=== PATIENT | female | born 1995 | race Caucasian/White ===

== ENCOUNTER 2017-01-20 15:39 | Emergency (ER) | payer BC, MEDICAID, OTHER ==
[2017-01-20 15:50] VITALS: BP 119/71
[2017-01-20] MEDS ORDERED: LORAZEPAM 1 MG TABLET PO ONE (16:01)
--- NOTE | 2017-01-20 16:06 | ER Document Report ---
ED Medical Screen (RME) - General Chief Complaint: Epigastric Pain Stated Complaint: DIFFICULTY BREATHING Time Seen by Provider: 01/20/17 15:54 Mode of Arrival: Ambulatory Information source: Patient TRAVEL OUTSIDE OF THE [place] IN LAST 30 DAYS: No - HPI Onset: Just prior to arrival Onset/Duration: Sudden Context: ONSET WHILE @ WORK, 15-20 MIN. AFTER DRINKING A "5-HOUR ENERGY DRINK" Quality of pain: No pain, Other - "TIGHTNESS" Associated Symptoms: Dizzy/lightheaded, Shortness of breath, Sweating, Weakness. denies: Abdominal pain, Chills, Fever, Leg swelling, Nausea Exacerbated by: Denies Relieved by: Denies Similar symptoms previously: No Recently seen / treated by doctor: No - Related Data Smoking: Non-smoker Frequency of alcohol use: Rare Drug Abuse: Marijuana Allergies/Adverse Reactions: Penicillins Allergy (Verified 01/20/17 15:49) Sulfa (Sulfonamide Antibiotics) Allergy (Verified 01/20/17 15:49) Past Medical History - Social History Cigarette use (# per day): No Chew tobacco use (# tins/day): No Frequency of alcohol use: Social Drug Abuse: Marijuana Pulmonary Medical History: Reports: Hx Asthma - as a child Renal/ Medical History: Denies: Hx Peritoneal Dialysis Surgical Hx: Negative Review of Systems - Review of Systems Constitutional: Weakness EENT: No symptoms reported Cardiovascular: See HPI Respiratory: See HPI Gastrointestinal: No symptoms reported Genitourinary: No symptoms reported Female Genitourinary: No symptoms reported. denies: Musculoskeletal: No symptoms reported Skin: Other - DIAPHORESIS Neurological/Psychological: See HPI Physical Exam - Vital signs Vitals: Temp Pulse Resp BP Pulse Ox 97.4 F 61 24 H 119/71 98 01/20/17 15:49 01/20/17 15:49 01/20/17 15:49 01/20/17 15:49 01/20/17 15:49 Interpretation: Tachypneic. No: Hypertensive, Tachycardic - General General appearance: Alert, Anxious In distress: None - Respiratory Respiratory status: No respiratory distress Breath sounds: Normal - Cardiovascular Rhythm: Regular Heart sounds: Normal auscultation Murmur: No Course - Vital Signs Vital signs: Temp Pulse Resp BP Pulse Ox 97.4 F 61 24 H 119/71 98 01/20/17 15:49 07/16/17 15:49 01/20/17 15:49 01/20/17 15:49 01/20/17 15:49
[2017-01-20 16:21] LABS: ABSOLUTE BASOPHILS # (AUTO) 0.1 10^3/uL (0.0-0.2); ABSOLUTE EOSINOPHILS # (AUTO) 0.2 10^3/uL (0.0-0.6); ABSOLUTE LYMPHOCYTES (AUTO) 3.1 10^3/uL (0.5-4.7); ABSOLUTE MONOCYTES (AUTO) 0.5 10^3/uL (0.1-1.4); ABSOLUTE NEUT (AUTO) 4.9 10^3/uL (1.7-8.2); BASOPHILS % (AUTO) 1.3 % (0-2); HEMATOCRIT 44.5 % (36.0-47.0); HGB HCT DIFFERENCE 0.5; LYMPHOCYTES % (AUTO) 35.6 % (13-45); MEAN CORPUSCULAR HEMOGLOBIN 31.4 pg (27.0-33.4); MEAN CORPUSCULAR HGB CONC 33.7 g/dL (32.0-36.0); MEAN CORPUSCULAR VOLUME 93 fl (80-97); MONOCYTES % (AUTO) 5.9 % (3-13); RED BLOOD COUNT 4.77 10^6/uL (3.72-5.28); RED CELL DISTRIBUTION WIDTH 12.2 % (11.5-14.0); SEGMENTED NEUTROPHILS % (AUTO) 55.2 % (42-78); WHITE BLOOD COUNT 8.8 10^3/uL (4.0-10.5)
[2017-01-20 16:38] LABS: ALANINE AMINOTRANSFERASE 45 U/L (9-52); ALBUMIN 4.8 g/dL (3.5-5.0); ALKALINE PHOSPHATASE 89 U/L (38-126); ANION GAP 16 (5-19); ASPARTATE AMINO TRANSFERASE 64 U/L (14-36); BILIRUBIN,DIRECT 0.5 mg/dL (0.0-0.4); BLOOD UREA NITROGEN 12 mg/dL (7-20); CALCIUM 9.8 mg/dL (8.4-10.2); CARBON DIOXIDE 21 mmol/L (22-30); CHLORIDE 103 mmol/L (98-107); CREATININE RESULT 0.75 mg/dL (0.52-1.25); GLUCOSE 106 mg/dL (75-110); POTASSIUM 3.7 mmol/L (3.6-5.0); SODIUM 139.8 mmol/L (137-145); TOTAL PROTEIN 8.1 g/dL (6.3-8.2)
--- NOTE | 2017-01-20 16:53 | ER Document Report ---
ED General - General Mode of Arrival: Ambulatory Information source: Patient TRAVEL OUTSIDE OF THE [place] IN LAST 30 DAYS: No - HPI Onset: Just prior to arrival <MO TRIANA - Last Filed: 01/20/17 20:01> <MELODY BHAKTA - Last Filed: 01/20/17 22:54> - General Chief Complaint: Epigastric Pain Stated Complaint: DIFFICULTY BREATHING Time Seen by Provider: 01/20/17 15:54 Notes: Patient is a 21-year-old female that presents to the emergency department today with complaints of sudden "squeezing" chest pain with associated shortness of breath that began just prior to arrival. Patient states she had been at work for approximately 20 minutes when her symptoms began. Patient states that prior to getting to work, she drank a 5 hour energy shot which is the only thing that she can think of that could have triggered this. Patient goes on to state that this is not an uncommon thing for her to do though, stating she drinks these probably every other day and drinks lots of coffee regularly. Patient states that she got very sweaty and that it "hurt to breathe out" during this episode. Patient states she feels back to normal now and does not have any symptoms currently. Patient denies any usage of supplements. (MO TRIANA) - Related Data Allergies/Adverse Reactions: Penicillins Allergy (Verified 01/20/17 15:49) Sulfa (Sulfonamide Antibiotics) Allergy (Verified 01/20/17 15:49) Past Medical History - General Information source: Patient, [facility] Records - Social History Smoking Status: Never Smoker Cigarette use (# per day): No Chew tobacco use (# tins/day): No Frequency of alcohol use: Social Drug Abuse: Marijuana Lives with: Family Family History: Reviewed & Not Pertinent Pulmonary Medical History: Reports: Hx Asthma - as a child Surgical Hx: Negative <MO TRIANA - Last Filed: 01/20/17 20:01> Review of Systems - Review of Systems Constitutional: See HPI, Diaphoresis EENT: No symptoms reported Cardiovascular: See HPI, Chest pain Respiratory: See HPI, Hurts to breathe, Short of breath Gastrointestinal: No symptoms reported Genitourinary: No symptoms reported Female Genitourinary: No symptoms reported Musculoskeletal: No symptoms reported Skin: No symptoms reported Hematologic/Lymphatic: No symptoms reported Neurological/Psychological: No symptoms reported -: Yes All other systems reviewed and negative <MO TRIANA - Last Filed: 01/20/17 20:01> Physical Exam <MO TRIANA - Last Filed: 01/20/17 20:01> <MELODY BHAKTA - Last Filed: 01/20/17 22:54> - Vital signs Vitals: Temp Pulse Resp BP Pulse Ox 97.4 F 61 24 H 119/71 98 01/20/17 15:49 01/20/17 15:49 01/20/17 15:49 01/20/17 15:49 01/20/17 15:49 - Notes Notes: PHYSICAL EXAM GENERAL: Alert, interacts well. No acute distress. HEAD: Normocephalic, atraumatic. EYES: Pupils equal, round, and reactive to light. Extraocular movements intact. ENT: Oral mucosa moist, tongue midline. NECK: Full range of motion. Supple. Trachea midline. LUNGS: Clear to auscultation bilaterally, no wheezes, rales, or rhonchi. No respiratory distress. HEART: Regular rate and rhythm. No murmurs, gallops, or rubs. ABDOMEN: Soft, non-tender. Non-distended. Bowel sounds present in all 4 quadrants. EXTREMITIES: Moves all 4 extremities spontaneously. No edema, radial and dorsalis pedis pulses 2/4 bilaterally. No cyanosis. NEUROLOGICAL: Alert and oriented x3. Normal speech. Biceps and patellar DTRs 2+ bilaterally. PSYCH: Normal affect, normal mood. SKIN: Warm, skin is slightly damp, normal turgor. No rashes or lesions noted. (MO TRIANA) Course - Laboratory Result Diagrams: 01/20/17 16:05 01/20/17 16:05 <MO TRIANA - Last Filed: 01/20/17 20:01> - Laboratory Result Diagrams: 01/20/17 16:05 01/20/17 16:05 <MLEODY BHAKTA - Last Filed: 01/20/17 22:54> - Re-evaluation Re-evalutation: 01/20/17 22:45 CBC unremarkable, CMP shows slightly low CO2 at 21 otherwise unremarkable, hCG negative, EKG is nonischemic, it was repeated once and still had no changes. Patient feels much better. At present I do not have a definite answer for why the patient had her earlier symptoms however I suspect that came from the 5 hour energy drink. Encouraged patient to wait for her lab work to return however patient eloped before I can give her her final discharge instructions. I see no life-threatening etiology at this time. Patient eloped but was going to be discharged home. (MELODY BHAKTA) - Vital Signs Vital signs: Temp Pulse Resp BP Pulse Ox 97.4 F 61 24 H 119/71 98 01/20/17 15:49 01/20/17 15:49 01/20/17 15:49 01/20/17 15:49 01/20/17 15:49 - Laboratory Laboratory results interpreted by me: 01/20/17 16:05 Carbon Dioxide 21 L Direct Bilirubin 0.5 H AST 64 H - EKG Interpretation by Me Additional EKG results interpreted by me: 01/20/17 22:53 Initial EKG shows sinus bradycardia at a rate of 58, normal axis, normal intervals, no ST segment elevations or depressions, no T-wave inversions per my interpretation. Repeat EKG shows sinus bradycardia at a rate of 51, normal axis, normal intervals, no ST segment elevations or depressions, no T-wave inversions per my interpretation. (MELODY BHAKTA) Discharge <MO TRIANA - Last Filed: 01/20/17 20:01> <MELODY BHAKTA - Last Filed: 01/20/17 22:54> - Discharge Clinical Impression: Epigastric abdominal pain of unknown etiology Condition: Stable Disposition: ELOPED Scribe Attestation: 01/20/17 22:53 I personally performed the services described in the documentation, reviewed and edited the documentation which was dictated to the scribe in my presence, and it accurately records my words and actions. (MELODY BHAKTA) Scribe Documentation - Scribe Written by Gary:: Gary Tinajero, 01/20/20172006 acting as scribe for :: Alfredo <MO TRIANA - Last Filed: 01/20/17 20:01>
--- NOTE | 2017-01-20 21:51 | EKG REPORT ---
SEVERITY:- NORMAL ECG - SINUS RHYTHM : Confirmed by: Michele Centeno MD 20-Jan-2017 21:51:45
--- NOTE | 2017-01-20 21:53 | EKG REPORT ---
SEVERITY:- BORDERLINE ECG - SINUS RHYTHM : Confirmed by: Michele Centeno MD 20-Jan-2017 21:53:02
== END 2017-01-20 18:08 | disposition left against medical advice (07) ==
LOC: ER 15:39
DX: R10.13 Epigastric pain (principal); R06.02 Shortness of breath
CPT/HCPCS: 36415; 80053; 84703; 85025; 93005; 93010; 99281

== ENCOUNTER 2017-08-30 02:27 | Inpatient (IN) | payer SELFPAY ==
[2017-08-30] MEDS ORDERED: NORMAL SALINE 1000 ML 1,000 ML IV ONE (02:43)
[2017-08-30] MEDS ORDERED: ONDANSETRON HCL INJ/PF 4 MG/2 ML SDV IV ONE (02:45)
--- NOTE | 2017-08-30 03:14 | ER Document Report ---
ED GI/ - General Mode of Arrival: Ambulatory Information source: Patient TRAVEL OUTSIDE OF THE [place] IN LAST 30 DAYS: No <MO TRIANA - Last Filed: 08/30/17 04:04> <SUKUMAR ROUSE - Last Filed: 08/30/17 05:12> - General Chief Complaint: Abdominal Pain Stated Complaint: ABDOMINAL PAIN/VOMITING Time Seen by Provider: 08/30/17 02:41 Notes: Patient is a 22-year-old female who presents to the emergency department today with complaints of abdominal pain, nausea, and vomiting. Patient states that her abdominal pain began before the nausea and vomiting. Patient states she was at work, taking an order when she became very diaphoretic, short of breath and began vomiting. Patient states she ate sausage and eggs this morning which several other people ate who are not having any GI symptoms. Patient states she has had "hot and cold flashes". (MO TRIANA) - Related Data Allergies/Adverse Reactions: Penicillins Allergy (Verified 01/20/17 15:49) Sulfa (Sulfonamide Antibiotics) Allergy (Verified 01/20/17 15:49) Past Medical History - General Information source: Patient - Social History Smoking Status: Unknown if Ever Smoked Cigarette use (# per day): No Frequency of alcohol use: None Drug Abuse: None Lives with: Family Family History: Reviewed & Not Pertinent Pulmonary Medical History: Reports: Hx Asthma - as a child Surgical Hx: Negative <MO TRIANA - Last Filed: 08/30/17 04:04> Review of Systems - Review of Systems Constitutional: See HPI, Diaphoresis, Other - "hot/cold" EENT: No symptoms reported Cardiovascular: No symptoms reported Respiratory: No symptoms reported Gastrointestinal: See HPI, Abdominal pain, Nausea, Vomiting Genitourinary: No symptoms reported Female Genitourinary: No symptoms reported Musculoskeletal: No symptoms reported Skin: No symptoms reported Hematologic/Lymphatic: No symptoms reported Neurological/Psychological: No symptoms reported -: Yes All other systems reviewed and negative <MO TRIANA - Last Filed: 08/30/17 04:04> Physical Exam <MO TRIANA - Last Filed: 08/30/17 04:04> <SUKUMAR ROUSE - Last Filed: 08/30/17 05:12> - Vital signs Vitals: Temp Pulse Resp BP Pulse Ox 97.5 F 59 L 22 H 120/72 100 08/30/17 02:32 08/30/17 02:32 08/30/17 02:32 08/30/17 02:32 08/30/17 02:32 - Notes Notes: Physical Exam: General: Alert, appears uncomfortable. HEENT: Normocephalic. Atraumatic. PERRL. Extraocular movements intact. Oropharynx clear. Neck: Supple. Non-tender. Respiratory: No respiratory distress. Clear and equal breath sounds bilaterally. Cardiovascular: Tachycardic with regular rhythm. Abdominal: Vomiting during exam. Epigastric tenderness with palpation. No distension. Normal Bowel Sounds. Back: Non-tender. No deformity or step off. Extremities: Moves all four extremities. Upper extremities: Normal inspection. Normal ROM. Lower extremities: Normal inspection. No edema. Normal ROM. Neurological: Normal cognition. AAOx4. Normal speech. Psychological: Appears anxious. Skin: Warm. Diaphoretic. Normal color. (MO TRIANA) Course - Laboratory Result Diagrams: 08/30/17 03:15 08/30/17 03:15 <MO TRIANA - Last Filed: 08/30/17 04:04> - Laboratory Result Diagrams: 08/30/17 03:15 08/30/17 03:15 - Diagnostic Test Radiology reviewed: Reports reviewed - Consults Dr. Guerra Time consulted: 04:30 Consulted provider: other Dr. Pierce Time consulted: 04:45 Consulted provider: will see as inpatient - accepts for admission <SUKUMAR ROUSE - Last Filed: 08/30/17 05:12> - Re-evaluation Re-evalutation: 08/30/17 05:10 Patient is a 22-year-old female who comes in with vomiting and abdominal pain. Ultrasound with no acute findings. Patient is still nauseated. She has elevation of her LFTs. No jaundice. Patient was discussed with surgery who does not feel that this is an acute surgical issue and recommends admission to the hospitalist service if the patient is still having symptoms. Discussed with the hospitalist service. Patient will be kept for observation. Patient is agreeable to this plan. Stable at time of admission. Hepatitis panel sent. (SUKUMAR ROUSE) - Vital Signs Vital signs: Temp Pulse Resp BP Pulse Ox 97.5 F 59 L 22 H 120/72 100 08/30/17 02:32 08/30/17 02:32 08/30/17 02:32 08/30/17 02:32 08/30/17 02:32 - Laboratory Laboratory results interpreted by me: 08/30/17 08/30/17 03:15 03:15 WBC 13.8 H Hgb 16.4 H Seg Neutrophils % 82.2 H Lymphocytes % 12.1 L Absolute Neutrophils 11.4 H Carbon Dioxide 20 L Glucose 138 H Calcium 11.0 H Total Bilirubin 2.9 H Direct Bilirubin 2.0 H AST 356 H ALT 277 H Alkaline Phosphatase 163 H Total Protein 8.6 H Albumin 5.2 H Discharge <MO TRIANA - Last Filed: 08/30/17 04:04> - Discharge Admitting Provider: Hospitalist - [facility] Unit Admitted: Medical Floor <SUKUMAR ROUSE - Last Filed: 08/30/17 05:12> - Discharge Clinical Impression: Hepatitis Abdominal pain Qualifiers: Abdominal location: epigastric Qualified Code(s): R10.13 - Epigastric pain Vomiting Qualifiers: Vomiting type: unspecified Vomiting Intractability: intractable Nausea presence : with nausea Qualified Code(s): R11.2 - Nausea with vomiting, unspecified Condition: Stable Disposition: ADMITTED OBSERVATION Scribe Attestation: 08/30/17 05:12 I personally performed the services described in the documentation, reviewed and edited the documentation which was dictated to the scribe in my presence, and it accurately records my words and actions. (SUKUMAR ROUSE)
[2017-08-30] MEDS ORDERED: FENTANYL CITRATE INJ/PF 100 MCG/2 ML AMPUL IV ONE ×2 (03:16→04:15)
[2017-08-30 03:26] LABS: ABSOLUTE BASOPHILS # (AUTO) 0.1 10^3/uL (0.0-0.2); ABSOLUTE LYMPHOCYTES (AUTO) 1.7 10^3/uL (0.5-4.7); ABSOLUTE MONOCYTES (AUTO) 0.7 10^3/uL (0.1-1.4); ABSOLUTE NEUT (AUTO) 11.4 10^3/uL (1.7-8.2); BASOPHILS % (AUTO) 0.5 % (0-2); EOSINOPHILS % (AUTO) 0.2 % (0-6); HEMOGLOBIN 16.4 g/dL (12.0-15.5); LYMPHOCYTES % (AUTO) 12.1 % (13-45); MEAN CORPUSCULAR HEMOGLOBIN 32.5 pg (27.0-33.4); MEAN CORPUSCULAR HGB CONC 35.7 g/dL (32.0-36.0); MEAN CORPUSCULAR VOLUME 91 fl (80-97); PLATELET COUNT 255 10^3/uL (150-450); RED BLOOD COUNT 5.05 10^6/uL (3.72-5.28); RED CELL DISTRIBUTION WIDTH 13.5 % (11.5-14.0); SEGMENTED NEUTROPHILS % (AUTO) 82.2 % (42-78); TOTAL CELLS COUNTED % (AUTO) 100 %; WHITE BLOOD COUNT 13.8 10^3/uL (4.0-10.5)
[2017-08-30 03:38] LABS: ALANINE AMINOTRANSFERASE 277 U/L (9-52); ALBUMIN 5.2 g/dL (3.5-5.0); ALKALINE PHOSPHATASE 163 U/L (38-126); ANION GAP 16 (5-19); ASPARTATE AMINO TRANSFERASE 356 U/L (14-36); BILIRUBIN,TOTAL 2.9 mg/dL (0.2-1.3); BLOOD UREA NITROGEN 10 mg/dL (7-20); CARBON DIOXIDE 20 mmol/L (22-30); CHLORIDE 104 mmol/L (98-107); GLUCOSE 138 mg/dL (75-110); LIPASE 129.4 U/L (23-300); POTASSIUM 3.6 mmol/L (3.6-5.0); SODIUM 139.8 mmol/L (137-145); TOTAL PROTEIN 8.6 g/dL (6.3-8.2)
[2017-08-30] MEDS ORDERED: METOCLOPRAMIDE HCL INJ/PF 10 MG/2 ML SDV IV ONE (04:20)
--- NOTE | 2017-08-30 04:23 | RADIOLOGY REPORT (SQ) ---
EXAM DESCRIPTION: U/S ABDOMEN LIMITED W/O DOP CLINICAL HISTORY: upper abd pain, n/v COMPARISON: None. TECHNIQUE: Real-time sonographic images of the right upper abdomen were obtained using a curved multihertz transducer. FINDINGS: The visualized portions of the pancreas are unremarkable. The visualized portions of the aorta and IVC are unremarkable. The liver has normal contour and echogenicity. Hepatopedal flow in the portal vein. Common bile duct measures 0.2 cm Multiple shadowing echogenic structures identified within the gallbladder lumen. Normal gallbladder wall thickness. Negative reported sonographic Guadarrama sign. No pericholecystic fluid identified. The right kidney measures 9.1 cm in length. No hydronephrosis, solid renal mass, or shadowing calculi. IMPRESSION: 1. Cholelithiasis without other sonographic evidence of acute cholecystitis.
[2017-08-30] MEDS ORDERED: 1/2 NORMAL SALINE 1,000 ML IV PRN (04:45)
[2017-08-30] MEDS ORDERED: PROMETHAZINE HCL INJ 25 MG/1 ML VIAL IV PRN (04:45)
[2017-08-30] MEDS ORDERED: FENTANYL CITRATE INJ/PF 100 MCG/2 ML AMPUL IV PRN (04:51)
--- NOTE | 2017-08-30 05:41 | PDOC H&P ---
History of Present Illness Patient complains of: Multiple episodes of nausea and vomiting and persistent epigastric pain 1 day. History of Present Illness: CLEO Williamson CASE is a 22 year old female with history of asthma as a child was admitted with above-mentioned complaints. She started having epigastric pain around 5 PM which she described as "twisting" pain localized to the epigastric area. She denied any fever but she had chills and she was very diaphoretic. She also was having multiple episodes of vomiting. He vomitus was initially of food consistency and then turned bilious, no hematemesis. She ate the same food as her friends and none of them had similar symptoms. She denied any constipation or any urinary symptoms. The patient mentioned that she usually drinks alcohol on occasion but more so recently when she moved out. Her last drink (wine) was about 2 days ago. The patient also mentioned that she felt short of breath when taking deep breaths but she denied any chest pain or any cough. She had similar episode 2 days ago but it was brief and resolved without intervention. In the ED, her temperature was 97.5, heart rate 59, respiratory rate 22, blood pressure 120/72 with oxygen saturation of 100% on room air. Her WBC was 13.8 and her hemoglobin was 16.4. Her liver enzymes were elevated but her lipase was 129. UA pending. An abdominal ultrasound was done which showed cholelithiasis with nondilated CBD, no acute cholecystitis. She received 50 mcg Fentanyl 2, 5 mg IV Reglan 1 and 4 mg IV Zofran 1 in addition to 1L of normal saline with improvement of her symptoms. Past Medical History Pulmonary Medical History: Reports: Asthma - as a child Past Surgical History Past Surgical History: Reports: None Social History Lives with: Family Smoking Status: Unknown if Ever Smoked Cigarettes Packs Per Day: 0 Frequency of Alcohol Use: Occasional Hx Recreational Drug Use: Yes Drugs: Marijuana - The last time was couple weeks ago. Family History Parental Family History Reviewed: Yes - Paternal grandparents: Diabetes Children Family History Reviewed: No Sibling(s) Family History Reviewed.: Yes Medication/Allergy Allergies/Adverse Reactions: Penicillins Allergy (Verified 01/20/17 15:49) Sulfa (Sulfonamide Antibiotics) Allergy (Verified 01/20/17 15:49) Review of Systems Constitutional: PRESENT: as per HPI Eyes: PRESENT: as per HPI Ears: PRESENT: as per HPI Nose, Mouth, and Throat: PRESENT: as per HPI Breasts: PRESENT: as per HPI Cardiovascular: PRESENT: as per HPI Respiratory: PRESENT: as per HPI Gastrointestinal: PRESENT: as per HPI Genitourinary: PRESENT: as per HPI Musculoskeletal: PRESENT: as per HPI Integumentary: PRESENT: as per HPI Neurological: PRESENT: as per HPI Psychiatric: PRESENT: as per HPI Endocrine: PRESENT: as per HPI Hematologic/Lymphatic: PRESENT: as per HPI Allergic/Immunologic: PRESENT: as per HPI Physical Exam Vital Signs: Temp Pulse Resp BP Pulse Ox 97.5 F 59 L 22 H 120/72 100 08/30/17 02:32 08/30/17 02:32 08/30/17 02:32 08/30/17 02:32 08/30/17 02:32 Intake & Output 08/28/17 08/29/17 08/30/17 06:59 06:59 06:59 Weight 72.575 kg General appearance: PRESENT: no acute distress, well-developed, well-nourished Head exam: PRESENT: atraumatic, normocephalic Eye exam: PRESENT: conjunctiva pink, PERRLA. ABSENT: scleral icterus Mouth exam: PRESENT: moist, tongue midline Respiratory exam: PRESENT: clear to auscultation arianna. ABSENT: rales, rhonchi, wheezes Cardiovascular exam: PRESENT: RRR - S1 S2 normal.. ABSENT: systolic murmur Pulses: PRESENT: normal dorsalis pedis pul GI/Abdominal exam: PRESENT: normal bowel sounds, soft. ABSENT: distended, guarding, rebound, tenderness Rectal exam: PRESENT: deferred Extremities exam: PRESENT: full ROM. ABSENT: pedal edema Neurological exam: PRESENT: alert, awake, oriented to person, oriented to place , oriented to time, oriented to situation. ABSENT: motor sensory deficit Psychiatric exam: PRESENT: appropriate affect, normal mood Skin exam: PRESENT: dry, intact, warm. ABSENT: cyanosis, rash Results Laboratory Results: 08/30/17 03:15 08/30/17 03:15 08/30/17 08/30/17 03:15 03:15 WBC 13.8 H RBC 5.05 Hgb 16.4 H Hct 46.0 MCV 91 MCH 32.5 MCHC 35.7 RDW 13.5 Plt Count 255 Seg Neutrophils % 82.2 H Lymphocytes % 12.1 L Monocytes % 5.0 Eosinophils % 0.2 Basophils % 0.5 Absolute Neutrophils 11.4 H Absolute Lymphocytes 1.7 Absolute Monocytes 0.7 Absolute Eosinophils 0.0 Absolute Basophils 0.1 Sodium 139.8 Potassium 3.6 Chloride 104 Carbon Dioxide 20 L Anion Gap 16 BUN 10 Creatinine 0.68 Est GFR ( Amer) > 60 Est GFR (Non-Af Amer) > 60 Glucose 138 H Calcium 11.0 H Total Bilirubin 2.9 H AST 356 H ALT 277 H Alkaline Phosphatase 163 H Total Protein 8.6 H Albumin 5.2 H Lipase 129.4 Impressions: Abdomen Ultrasound 08/30/17 03:15 IMPRESSION: 1. Cholelithiasis without other sonographic evidence of acute cholecystitis. Assessment & Plan - Diagnosis (1) Acute hepatitis Is this a current diagnosis for this admission?: Yes Plan: Possibly secondary to passing a gallstone. Abdominal ultrasound reviewed. The patient denied any alcohol use. Her lipase level is normal . We will continue supportive care with IV fluids and antiemetics and pain medications and repeat CMP in a.m. Will follow-up viral hepatitis profile (the patient has multiple tattoos and piercings). She denied any IVDA, will check UDS. The case was apparently discussed between ED physician and surgery who recommended conservative management at this time. The patient may need to have cholecystectomy at some point. (2) Total bilirubin, elevated Is this a current diagnosis for this admission?: Yes Plan: Possibly secondary to passing a gallstone. We will continue to trend. (3) Metabolic acidosis Is this a current diagnosis for this admission?: Yes Plan: nongap acidosis in the setting of frequent vomiting. We will continue to hydrate and repeat CMP in a.m. (4) Leukocytosis Is this a current diagnosis for this admission?: Yes Plan: possibly due to hemoconcentration and/or inflammation given frequent vomiting and decreased appetite. Her abdominal ultrasound did not show any cholecystitis. UA is pending.
[2017-08-30 06:22] LABS: APPEARANCE,URINE SLIGHTLY-CLOUDY; BILIRUBIN,URINE NEGATIVE (NEGATIVE); COLOR,URINE AMBER; GLUCOSE, URINE NEGATIVE (NEGATIVE); KETONES,URINE 20 mg/dL (NEGATIVE); LEUKOCYTE ESTERASE,URINE NEGATIVE (NEGATIVE); NITRITE,URINE NEGATIVE (NEGATIVE); PROTEIN,URINE 100 mg/dL (NEGATIVE); URINE SPECIFIC GRAVITY 1.026
[2017-08-30 06:36] LABS: URINE AMPHETAMINES SCREEN NEGATIVE; URINE BARBITURATES SCREEN NEGATIVE; URINE BENZODIAZEPINES SCREEN NEGATIVE; URINE COCAINE SCREEN NEGATIVE; URINE MARIJUANA (THC) SCREEN UNCONFIRMED POSITIVE; URINE METHADONE SCREEN NEGATIVE; URINE PHENCYCLIDINE SCREEN NEGATIVE
[2017-08-30] MEDS ORDERED: HYDROMORPHONE HCL INJ/PF 2 MG/ML AMPULE IV PRN (08:46)
[2017-08-30] MEDS ORDERED: HYDROMORPHONE HCL INJ/PF 2 MG/ML AMPULE IV ONE (09:00)
--- NOTE | 2017-08-30 15:00 | PDOC PROGRESS REPORT ---
Subjective Progress Note for:: 08/30/17 Subjective:: The patient is a 22-year-old female admitted with hepatitis. It is felt that she developed hepatitis from transient obstruction of the common bile duct from gallstones. Currently, she is feeling better but still requiring intravenous Dilaudid for pain control. Reason For Visit: ACUTE HEPATITIS Physical Exam Vital Signs: Temp Pulse Resp BP Pulse Ox 98.6 F 69 20 105/53 L 96 08/30/17 11:30 08/30/17 11:30 08/30/17 11:30 08/30/17 11:30 08/30/17 11:30 Intake & Output 08/29/17 08/30/17 08/31/17 06:59 06:59 06:59 Weight 74.1 kg Additional comments: The patient appears to be a very young, healthy female. She is not in any distress. Her cognition is normal. Her facial appearance is normal. Her lungs are clear to auscultation bilaterally. Her cardiac exam is regular without murmurs, gallops or rubs. The abdomen is actually soft and flat she only has palpable pain with deep palpation over the right upper quadrant. Otherwise, the abdomen is benign. The lower extremities are unremarkable. Results Impressions: Abdomen Ultrasound 08/30/17 03:15 IMPRESSION: 1. Cholelithiasis without other sonographic evidence of acute cholecystitis. Assessment & Plan - Diagnosis (1) Acute hepatitis Is this a current diagnosis for this admission?: Yes (2) Abdominal pain Qualifiers: Abdominal location: epigastric Qualified Code(s): R10.13 - Epigastric pain Is this a current diagnosis for this admission?: Yes (3) Hypercalcemia Is this a current diagnosis for this admission?: Yes (4) Leukocytosis Is this a current diagnosis for this admission?: Yes (5) Metabolic acidosis Is this a current diagnosis for this admission?: Yes (6) Total bilirubin, elevated Is this a current diagnosis for this admission?: Yes - Time Time Spent with patient: 15-24 minutes - Inpatient Certification Medical Necessity: Need Close Monitoring Due to Risk of Patient Decompensation, Need for Pain Control - Plan Summary Plan Summary: The patient will be admitted for intravenous fluids and to trend her labs. Hepatitis panel is pending. I will add a cholesterol panel for tomorrow morning. We will repeat labs in the morning to follow-up in the bilirubin levels, metabolic acidosis, leukocytosis and hypercalcemia. I anticipate that she will require an elective cholecystectomy in the near future. Patient has been made aware of the findings during this hospitalization and the plan of care.
[2017-08-30] MEDS: POTASSI CL 20 MEQ/1/2NS 1L 20 MEQ/1,000 ML RTUINJ IV PRN (15:44)
--- NOTE | 2017-08-30 22:03 | CONSULTATION REPORT E ---
Consultation Report NAME: CLEO FELDMAN : 1995 AGE: 22Y DATE: 08/30/2017 207 A TO: MATTIE LOPEZ M.D. FROM: MIKE AYALA M.D. Requesting Physician Patient seen at the request of Dr. Hill. REASON: Gallstones. REPORT OF CONSULTATION: Patient is a 22-year-old white female, previously healthy with approximately a 2-day history of intermittent abdominal pain, bloating, nausea, multiple episodes of vomiting refractory to eating, and moving her bowels. She denies previous episodes, history of gastrointestinal problems, hepatitis, or gallbladder problems. There is a strong family history of gallbladder disease. Patient's last bowel movement was yesterday, normal. The patient was seen in the emergency department where she was admitted with symptomatic cholelithiasis, cholecystitis, possible hepatitis. Patient has clinically improved over the last 18 hours. Surgery was consulted for evaluation of possible interval cholecystectomy. PAST MEDICAL HISTORY: Significant for asthma. PAST SURGICAL HISTORY: None. SOCIAL HISTORY: Patient does smoke. Does use alcohol occasionally. FAMILY HISTORY: Significant for gallbladder disease and diabetes. MEDICATIONS: None known. ALLERGIES: Include: 1. PENICILLIN. 2. SULFA. REVIEW OF SYSTEMS: CONSTITUTIONAL: The patient denies. CARDIOVASCULAR: The patient denies. INTEGUMENT: The patient denies. Remainder of the review of systems unremarkable. PHYSICAL EXAMINATION: GENERAL: Patient examined on the 4th floor, [facility]. No acute distress. VITAL SIGNS: Stable. HEENT: Normocephalic, atraumatic. NECK: No adenopathy. LUNGS: Diminished in the bases bilaterally. HEART: Without murmur or gallop. ABDOMEN: Soft. There is epigastric tenderness with some guarding but no peritoneal signs. No rigidity. No organomegaly. Remainder of the physical exam is unremarkable. LABORATORY PROFILE: Shows a hemoglobin of 16.4, white blood cell count 13,800. Electrolytes within normal limits. Bicarb low at 20. Total bilirubin at 2.9, direct 2, alk phos 163, AST 356, ALT 277, albumin of 5.2. Lipase level 129. Gallbladder ultrasonography revealed multiple gallstones; bile duct interpreted as normal diameter. No liver abnormalities. IMPRESSION: 1. CHOLECYSTITIS WITH CHOLELITHIASIS WITH ELEVATED LIVER FUNCTION STUDIES CONSISTENT WITH PASSING OF COMMON BILE DUCT STONES. 2. SMOKER. 3. OCCASIONAL ALCOHOL CONSUMER. RECOMMENDATIONS: 1. Explained to the patient the patho-anatomy of gallbladder disease, gallstones, and retained common duct stones and risks of choledocholithiasis. 2. I suggested we keep patient n.p.o. and check liver function studies in the morning. If numbers and patient's clinical condition clinically improve, proceed with laparoscopic cholecystectomy with IO cholangiogram.. Conversely, if patient's symptoms persist or worsen, or the patient's liver function studies are unchanged or even more elevated, then I suggest patient undergo ERCP. Resources are limited at [facility], so transfer may be required and this was discussed with the patient. Discussed the above with Dr. Hill. DICTATING PHYSICIAN: MATTIE LOPEZ M.D. [id number] PHY#: [id number] ID: [id number] JOB#: [id number] ACCT: [id number] cc:MATTIE LOPEZ M.D. > MTDD
[2017-08-31] MEDS: POTASSI CL 20 MEQ/1/2NS 1L 20 MEQ/1,000 ML RTUINJ IV PRN (06:42)
[2017-08-31 07:03] LABS: ABSOLUTE EOSINOPHILS # (AUTO) 0.2 10^3/uL (0.0-0.6); ABSOLUTE LYMPHOCYTES (AUTO) 3.5 10^3/uL (0.5-4.7); ABSOLUTE MONOCYTES (AUTO) 0.5 10^3/uL (0.1-1.4); ABSOLUTE NEUT (AUTO) 4.4 10^3/uL (1.7-8.2); BASOPHILS % (AUTO) 0.6 % (0-2); EOSINOPHILS % (AUTO) 1.8 % (0-6); HEMATOCRIT 40.8 % (36.0-47.0); LYMPHOCYTES % (AUTO) 40.7 % (13-45); MEAN CORPUSCULAR HEMOGLOBIN 32.8 pg (27.0-33.4); MEAN CORPUSCULAR HGB CONC 34.8 g/dL (32.0-36.0); MEAN CORPUSCULAR VOLUME 94 fl (80-97); MONOCYTES % (AUTO) 6.2 % (3-13); PLATELET COUNT 183 10^3/uL (150-450); RED BLOOD COUNT 4.34 10^6/uL (3.72-5.28); RED CELL DISTRIBUTION WIDTH 13.6 % (11.5-14.0); SEGMENTED NEUTROPHILS % (AUTO) 50.7 % (42-78); TOTAL CELLS COUNTED % (AUTO) 100 %; WHITE BLOOD COUNT 8.6 10^3/uL (4.0-10.5)
[2017-08-31 07:06] LABS: HEMOGLOBIN 14.2 g/dL (12.0-15.5)
[2017-08-31 07:28] LABS: ALANINE AMINOTRANSFERASE 219 U/L (9-52); ALBUMIN 3.8 g/dL (3.5-5.0); ALKALINE PHOSPHATASE 107 U/L (38-126); ANION GAP 9 (5-19); ASPARTATE AMINO TRANSFERASE 108 U/L (14-36); BILIRUBIN,DIRECT 0.4 mg/dL (0.0-0.4); BILIRUBIN,TOTAL 0.7 mg/dL (0.2-1.3); BLOOD UREA NITROGEN 8 mg/dL (7-20); CALCIUM 8.9 mg/dL (8.4-10.2); CARBON DIOXIDE 22 mmol/L (22-30); CHLORIDE 109 mmol/L (98-107); CHOLESTEROL 141.08 mg/dL (0-200); GLUCOSE 87 mg/dL (75-110); LIPASE 39.3 U/L (23-300); POTASSIUM 3.8 mmol/L (3.6-5.0); SODIUM 139.9 mmol/L (137-145); TOTAL PROTEIN 6.5 g/dL (6.3-8.2); TRIGLYCERIDES 57 mg/dL (<150)
[2017-08-31 07:39] LABS: DIRECT LDL 68 mg/dL (<100)
[2017-08-31] MEDS ORDERED: RINGERS SOLUTION,LACTATED 1,000 ML IV PRN (08:11)
[2017-08-31 08:39] LABS: HEPATITIS A AB IGM Negative (Negative); HEPATITIS B CORE AB IGM Negative (Negative); HEPATITS B SURFACE ANTIGEN Negative (Negative)
[2017-08-31] MEDS ORDERED: CEFAZOLIN 1 GM/D5W RTU 1 GM/50 ML RTUPB IV ONE ×2 (08:40→10:00)
[2017-08-31] MEDS ORDERED: MIDAZOLAM 2 MG/2 ML INJ ONE (11:03)
[2017-08-31] MEDS ORDERED: PROPOFOL INJ 200 MG/20 ML VIAL IV ONE (11:04)
[2017-08-31] MEDS ORDERED: ACETAMINOPHEN 100 ML IV ONE (11:04)
[2017-08-31] MEDS ORDERED: HYDROMORPHONE HCL INJ/PF 2 MG/ML AMPULE ONE (11:04)
--- NOTE | 2017-08-31 11:05 | PDOC PROGRESS REPORT ---
Subjective Progress Note for:: 08/31/17 Reason For Visit: ACUTE HEPATITIS She was done well overnight, no abdominal pain, required no pain medication. No nausea or vomiting. Physical Exam Vital Signs: Temp Pulse Resp BP Pulse Ox 98.3 F 64 18 118/88 H 100 08/31/17 08:28 08/31/17 08:28 08/31/17 08:28 08/31/17 08:28 08/31/17 08:28 Intake & Output 08/30/17 08/31/17 09/01/17 06:59 06:59 06:59 Weight 74.1 kg General appearance: PRESENT: no acute distress GI/Abdominal exam: PRESENT: other - Benign abdomen soft no peritoneal signs no rigidity. Results Laboratory Results: 08/31/17 06:51 08/31/17 06:51 08/31/17 08/31/17 06:51 06:51 WBC 8.6 RBC 4.34 Hgb 14.2 D Hct 40.8 MCV 94 MCH 32.8 MCHC 34.8 RDW 13.6 Plt Count 183 Seg Neutrophils % 50.7 Lymphocytes % 40.7 Monocytes % 6.2 Eosinophils % 1.8 Basophils % 0.6 Absolute Neutrophils 4.4 Absolute Lymphocytes 3.5 Absolute Monocytes 0.5 Absolute Eosinophils 0.2 Absolute Basophils 0.0 Sodium 139.9 Potassium 3.8 Chloride 109 H Carbon Dioxide 22 Anion Gap 9 BUN 8 Creatinine 0.65 Est GFR ( Amer) > 60 Est GFR (Non-Af Amer) > 60 Glucose 87 Calcium 8.9 Magnesium 2.0 Total Bilirubin 0.7 AST 108 H ALT 219 H Alkaline Phosphatase 107 Total Protein 6.5 Albumin 3.8 Triglycerides 57 Cholesterol 141.08 LDL Cholesterol Direct 68 VLDL Cholesterol 11.0 HDL Cholesterol 62 Lipase 39.3 Impressions: Abdomen Ultrasound 08/30/17 03:15 IMPRESSION: 1. Cholelithiasis without other sonographic evidence of acute cholecystitis. Assessment & Plan - Diagnosis (1) Symptomatic cholelithiasis Is this a current diagnosis for this admission?: Yes Plan: Symptomatic cholelithiasis with cholecystitis with elevated liver function studies; now asymptomatic, with normalization of LFTs. Recommendation: 1. As I discussed with the patient last p.m., suggest we take her to the operating room cholangiography. The mechanics of the operation as well as an explanation of the risks benefits alternatives were reviewed with the patient as well as her mother. These include bleeding, infection, bile duct injury, need for drain placement. I believe she understands and agrees to proceed. 2. If the patient has retained common duct stone, then post lap jian ERCP may be required. This was also explained to the patient.
[2017-08-31] MEDS ORDERED: BUPIVACAINE HCL 0.25 % INJ/PF (2.5 MG/1 ML) 30 ML VIAL ONE (11:24)
[2017-08-31] MEDS ORDERED: MEPERIDINE HCL/PF INJ 25 MG/1 ML DISP.SYRIN IV PRN (11:42)
[2017-08-31] MEDS ORDERED: FENTANYL CITRATE INJ/PF 100 MCG/2 ML AMPUL IV PRN ×3 (11:42)
[2017-08-31] MEDS ORDERED: PROMETHAZINE HCL INJ 25 MG/1 ML VIAL IV PRN ×2 (11:42)
[2017-08-31] MEDS ORDERED: DIPHENHYDRAMINE HCL 50 MG/ML VIAL IV PRN (11:42)
--- NOTE | 2017-08-31 12:04 | PDOC PROGRESS REPORT ---
Subjective Progress Note for:: 08/31/17 Subjective:: The patient is a 22-year-old female admitted with hepatitis. It is felt that she developed hepatitis from transient obstruction of the common bile duct from gallstones. Today, she is going to the operating room for cholecystectomy. She will have an intraoperative cholangiogram. She had an unremarkable evening. Her pain is completely resolved. She has not had any nausea and vomiting and no fevers overnight. Reason For Visit: ACUTE HEPATITIS Physical Exam Vital Signs: Temp Pulse Resp BP Pulse Ox 98.3 F 64 18 118/88 H 100 08/31/17 08:28 08/31/17 08:28 08/31/17 08:28 08/31/17 08:28 08/31/17 08:28 Intake & Output 08/30/17 08/31/17 09/01/17 06:59 06:59 06:59 Weight 74.1 kg Additional comments: Patient is a very healthy-appearing 22-year-old female. She does not appear to be in any distress. Her facial appearance is unremarkable. Her lungs are clear to auscultation bilaterally. Her cardiac exam is regular without murmurs , gallops or rubs. The abdomen is soft and flat. Bowel sounds are present. She does not have guarding or rebound noted and there are no hernias or masses present. The lower extremities are unremarkable. The skin exam is unremarkable. Results Laboratory Results: 08/31/17 06:51 08/31/17 06:51 08/31/17 08/31/17 06:51 06:51 WBC 8.6 RBC 4.34 Hgb 14.2 D Hct 40.8 MCV 94 MCH 32.8 MCHC 34.8 RDW 13.6 Plt Count 183 Seg Neutrophils % 50.7 Lymphocytes % 40.7 Monocytes % 6.2 Eosinophils % 1.8 Basophils % 0.6 Absolute Neutrophils 4.4 Absolute Lymphocytes 3.5 Absolute Monocytes 0.5 Absolute Eosinophils 0.2 Absolute Basophils 0.0 Sodium 139.9 Potassium 3.8 Chloride 109 H Carbon Dioxide 22 Anion Gap 9 BUN 8 Creatinine 0.65 Est GFR ( Amer) > 60 Est GFR (Non-Af Amer) > 60 Glucose 87 Calcium 8.9 Magnesium 2.0 Total Bilirubin 0.7 AST 108 H ALT 219 H Alkaline Phosphatase 107 Total Protein 6.5 Albumin 3.8 Triglycerides 57 Cholesterol 141.08 LDL Cholesterol Direct 68 VLDL Cholesterol 11.0 HDL Cholesterol 62 Lipase 39.3 Impressions: Abdomen Ultrasound 08/30/17 03:15 IMPRESSION: 1. Cholelithiasis without other sonographic evidence of acute cholecystitis. Assessment & Plan - Diagnosis (1) Acute hepatitis Is this a current diagnosis for this admission?: Yes Plan: Hepatitis panel is still pending, but, LFTs are improving. Etiology likely due to cholelithiasis. (2) Abdominal pain Qualifiers: Abdominal location: epigastric Qualified Code(s): R10.13 - Epigastric pain Is this a current diagnosis for this admission?: Yes Plan: Resolved. (3) Hypercalcemia Is this a current diagnosis for this admission?: Yes Plan: Resolved. (4) Leukocytosis Is this a current diagnosis for this admission?: Yes Plan: Resolved. (5) Metabolic acidosis Is this a current diagnosis for this admission?: Yes Plan: Resolved. (6) Total bilirubin, elevated Is this a current diagnosis for this admission?: Yes Plan: Resolved. - Time Time Spent with patient: 15-24 minutes - Inpatient Certification Medical Necessity: Need for Surgery
--- NOTE | 2017-08-31 13:04 | Operative Report ---
Operative Report DATE OF SURGERY: 08/31/17 PREOPERATIVE DIAGNOSIS: 1. Symptomatic cholelithiasis with cholecystitis. 2. Elevated liver function studies. POSTOPERATIVE DIAGNOSIS: Same OPERATION: 1. Laparoscopic cholecystectomy. 2. Intraoperative cholangiography. 3. Interpretation of intraoperative cholangiography. SURGEON: MATTIE LOPEZ ANESTHESIA: GA TISSUE REMOVED OR ALTERED: 1 gallbladder with contents COMPLICATIONS: None ESTIMATED BLOOD LOSS: Minimal INTRAOPERATIVE FINDINGS: See below PROCEDURE: After obtaining informed consent, the patient was taken to the operating room. General Anesthesia was induced; the arms were extended, and the abdomen was exposed, and prepped and draped in a sterile fashion. Instrumentation was set up for laparoscopic cholecystectomy. Surgical plan and surgical timeout were conducted. A vertical incision was made above the umbilicus, and a verres needle was inserted uneventfully into the peritoneal cavity. Pneumoperitoneum was established. The verres needle was removed and a 5 mm trocar was inserted and a 5 mm flexible laparoscope was inserted. Visualization of the peritoneal cavity confirmed safe uneventful entry. Under direct visualization 3 additional 5 mm ports were established, one in the subxiphoid position and second in the subcostal position. There were dense adhesions between the infundibulum of the gallbladder and the gastroduodenal area. These were taken down sharply under direct visualization. Also of note the cystic duct came off of the infundibulum somewhat cephalad rather than at the end of the gallbladder. Visualization of the hepatobiliary anatomy revealed no anatomic variations. A grasper was placed on the fundus of the gallbladder and the gallbladder is elevated over the right surface of the liver; a second grasper was used to grasp the infundibulum of the gallbladder. The neck of the gallbladder and junction with the cystic duct was dissected out. The Cystic artery was in its usual location medial and cephalad to the cystic duct. The 2 branches of the cystic artery were surrounded with a right angle clamp, clipped twice proximally and divided with laparoscopic scissors. We now opened the triangle of Calot by dividing the peritoneal reflection on both the medial and lateral sides of the cystic duct infundibular junction. The critical view was obtained. We stay single clip on the gallbladder side of the cystic duct, then opened up the cystic duct with the laparoscopic scissors. We brought onto the field a disposable percutaneous angiogram catheter. This was threaded through a separate stab wound in the subcostal region created with a #11 blade. The micro I let was removed, and the cholangiogram catheter was threaded into the cystic duct by approximately 1/2 cm and clipped into position We now level the patient out, instilled approximately 8 cc of full-strength Isovue contrast to the cholangiogram catheter and shot a series of intraoperative cholangiograms. The images revealed normal hepatobiliary anatomy , minimally dilated common bile duct, complete visualization of the right and left hepatic ducts, common bile duct, distal common bile duct, which was tapered , and contrast into the duodenum. There was no leakage of bile. This was interpreted as a normal intraoperative cholangiogram. No filling defects were identified in the extrahepatic biliary tree. We now returned to the peritoneal cavity with the laparoscopic instruments, removed the clip holding the catheter in position, remove the catheter, disposed of the catheter, and formally clipped the cystic duct proximally with 3 clips. Photographs were taken. Of note there was free egress of bile out of the cystic duct, and no sludge. The gallbladder was now removed from the undersurface of the liver using hook cautery dissection. Graspers were repositioned and the gallbladder was removed uneventfully from the abdominal cavity through the super umbilical port site incision. The specimen was examined, then passed off to pathology for permanent analysis. We returned to the peritoneal cavity check for bleeding, and evidence of bile leak, and there was none. We Confirmed satisfactory placement of clips on cystic duct and cystic artery were secured . At this point we felt the operation was complete. The subcutaneous tissue was then anesthetized with quarter percent Marcaine Sponge and needle counts are correct. All ports removed under direct visualization pneumoperitoneum evacuated, and 5 mm port wounds closed with 3-0 Vicryl suture, and the supraumbilical incision at the fascial level was closed with multiple [id number] 0 Vicryl sutures. Benzoin and Steri-Strips applied. Subcutaneous Marcaine quarter percent was injected around all the incisions. The patient was extubated, and taken to the recovery room in stable condition.
--- NOTE | 2017-08-31 14:35 | RADIOLOGY REPORT (SQ) ---
EXAM DESCRIPTION: CHOLANGIOGRAM OPERATIVE COMPLETED DATE/TIME: 08/31/2017 12:58 pm REASON FOR STUDY: LAP MADY COMPARISON: Right upper quadrant ultrasound 08/30/2017 FLUOROSCOPY TIME: Less than 5 seconds 3 digital radiographic images saved to PACS. TECHNIQUE: Cinegraphic images were obtained from an intraoperative cholangiogram. LIMITATIONS: None. FINDINGS: There is opacification of the bile ducts, cystic duct remnants and second portion of the d uodenum without evidence of fixed filling defect or significant extravasation. IMPRESSION: INTRAOPERATIVE CHOLANGIOGRAM. COMMENT: Quality ID [id number]: Final reports for procedures using fluoroscopy that document radiation exp osure indices, or exposure time and number of fluorographic images (if radiation exposure indices are not available) TECHNICAL DOCUMENTATION: JOB ID: [id number] [employer]- All Rights Reserved Reading location - IP/workstation name: [email or web address]
[2017-08-31] MEDS ORDERED: ONDANSETRON HCL INJ/PF 4 MG/2 ML SDV ONE (15:45)
[2017-08-31] MEDS ORDERED: KETOROLAC TROMETHAMINE 60 MG/2 ML SDV ONE (15:45)
[2017-08-31] MEDS ORDERED: GLYCOPYRROLATE INJ 0.4 MG/2 ML VIAL ONE (15:45)
[2017-08-31] MEDS ORDERED: DEXAMETHASONE SOD PHOSPHATE INJ 4 MG/1 ML VIAL ONE (15:45)
[2017-08-31] MEDS ORDERED: NEOSTIGMINE METHYLSULFATE 10 MG/10 ML VIAL ONE (15:45)
[2017-08-31] MEDS ORDERED: METOCLOPRAMIDE HCL INJ/PF 10 MG/2 ML SDV ONE (15:45)
[2017-08-31] MEDS ORDERED: ROCURONIUM BROMIDE INJ 50 MG/5 ML VIAL IV ONE (15:45)
[2017-08-31] MEDS ORDERED: LIDOCAINE 2% INJ-PF (20 MG/ML) 2 ML AMPUL ONE (15:45)
[2017-08-31] MEDS ORDERED: SUCCINYLCHOLINE CHLORIDE INJ 200 MG/10 ML VIAL ONE (15:45)
[2017-08-31 17:32] VITALS: BP 106/50
--- NOTE | 2017-08-31 17:36 | PDOC DISCHARGE SUMMARY ---
General - Admit/Disc Date/PCP Admission Date/Primary Care Provider: 08/30/17 05:20 Discharge Date: 08/31/17 - Discharge Diagnosis (1) Cholecystitis with cholelithiasis Is this a current diagnosis for this admission?: Yes (2) Acute hepatitis Is this a current diagnosis for this admission?: Yes (3) Abdominal pain Is this a current diagnosis for this admission?: Yes (4) Hypercalcemia Is this a current diagnosis for this admission?: Yes (5) Leukocytosis Is this a current diagnosis for this admission?: Yes (6) Metabolic acidosis Is this a current diagnosis for this admission?: Yes (7) Total bilirubin, elevated Is this a current diagnosis for this admission?: Yes - Additional Information Resuscitation Status: Full Code Discharge Diet: As Tolerated, Regular Discharge Activity: Balance Activity w/Rest, Slowly Increase Activity Prescriptions: Hydrocodone/Acetaminophen [Vicodin 5-300 mg Tablet] 1 - 2 tab PO Q4HP PRN #20 tab PRN Reason: Home Medications: Hydrocodone/Acetaminophen [Vicodin 5-300 mg Tablet] 1 - 2 tab PO Q4HP PRN #20 tab 08/31/17 History of Present Illness History of Present Illness: Patient complains of: Multiple episodes of nausea and vomiting and persistent epigastric pain 1 day. History of Present Illness: CLEO Williamson CASE is a 22 year old female with history of asthma as a child was admitted with above-mentioned complaints. She started having epigastric pain around 5 PM which she described as "twisting" pain localized to the epigastric area. She denied any fever but she had chills and she was very diaphoretic. She also was having multiple episodes of vomiting. He vomitus was initially of food consistency and then turned bilious, no hematemesis. She ate the same food as her friends and none of them had similar symptoms. She denied any constipation or any urinary symptoms. The patient mentioned that she usually drinks alcohol on occasion but more so recently when she moved out. Her last drink (wine) was about 2 days ago. The patient also mentioned that she felt short of breath when taking deep breaths but she denied any chest pain or any cough. She had similar episode 2 days ago but it was brief and resolved without intervention. In the ED, her temperature was 97.5, heart rate 59, respiratory rate 22, blood pressure 120/72 with oxygen saturation of 100% on room air. Her WBC was 13.8 and her hemoglobin was 16.4. Her liver enzymes were elevated but her lipase was 129. UA pending. An abdominal ultrasound was done which showed cholelithiasis with nondilated CBD, no acute cholecystitis. She received 50 mcg Fentanyl 2, 5 mg IV Reglan 1 and 4 mg IV Zofran 1 in addition to 1L of normal saline with improvement of her symptoms. Hospital Course Hospital Course: Upon admission to the hospital the patient was made NPO. Then, her diet was advanced to clear liquids. During the first 24 hours of admission the patient was afebrile. Her abnormal liver function tests including her elevated bilirubin level defervesced overnight. Her leukocytosis resolved. Therefore, we assume that the patient had cholecystitis from cholelithiasis and that the stone had passed. General surgery was consulted. The patient was taken to surgery on 08/31/2017 for a laparoscopic cholecystectomy. Intraoperatively, the patient underwent a cholangiogram. The anatomy appeared normal with only minimal dilatation of the common bile duct. The intraoperative cholangiogram was interpreted as normal. The patient did very well and has had no complications. Therefore, she will be discharged to home. She is tolerating a regular diet without nausea and vomiting. She will be seen in follow-up with the surgery clinic within 1-2 weeks. Physical Exam Vital Signs: Temp Pulse Resp BP Pulse Ox 97.6 F 53 L 16 118/68 99 08/31/17 16:19 08/31/17 16:19 08/31/17 16:19 08/31/17 16:19 08/31/17 16:19 Intake & Output 08/30/17 08/31/17 09/01/17 06:59 06:59 06:59 Intake Total 1700 Output Total 10 Balance 1690 Weight 74.1 kg Additional comments: She is sitting up eating her dinner. She is not in any distress. Her cognition and mentation are appropriate. Her lungs remain clear to auscultation bilaterally. Her cardiac exam is regular without murmurs, gallops or rubs. The abdomen is soft and flat. She has 4 incision sites covered with Steri-Strips. The abdomen has normoactive bowel sounds. The lower extremities are unremarkable. No edema is present. No skin lesions or rashes are present. Results Laboratory Results: 08/31/17 06:51 08/31/17 06:51 08/31/17 08/31/17 06:51 06:51 WBC 8.6 RBC 4.34 Hgb 14.2 D Hct 40.8 MCV 94 MCH 32.8 MCHC 34.8 RDW 13.6 Plt Count 183 Seg Neutrophils % 50.7 Lymphocytes % 40.7 Monocytes % 6.2 Eosinophils % 1.8 Basophils % 0.6 Absolute Neutrophils 4.4 Absolute Lymphocytes 3.5 Absolute Monocytes 0.5 Absolute Eosinophils 0.2 Absolute Basophils 0.0 Sodium 139.9 Potassium 3.8 Chloride 109 H Carbon Dioxide 22 Anion Gap 9 BUN 8 Creatinine 0.65 Est GFR ( Amer) > 60 Est GFR (Non-Af Amer) > 60 Glucose 87 Calcium 8.9 Magnesium 2.0 Total Bilirubin 0.7 AST 108 H ALT 219 H Alkaline Phosphatase 107 Total Protein 6.5 Albumin 3.8 Triglycerides 57 Cholesterol 141.08 LDL Cholesterol Direct 68 VLDL Cholesterol 11.0 HDL Cholesterol 62 Lipase 39.3 Impressions: Abdomen Ultrasound 08/30/17 03:15 IMPRESSION: 1. Cholelithiasis without other sonographic evidence of acute cholecystitis. Cholangiogram 08/31/17 00:00 IMPRESSION: INTRAOPERATIVE CHOLANGIOGRAM. Qualifiers - * PATEINT BEING DISCHARGED WITH ANY OF THE FOLLOWING DIAGNOSIS?: No Plan Discharge Plan: Will be discharged to home. She may eat a regular diet. She will be told that she can shower within 24 hours. She will need follow-up in the surgery clinic in 1-2 weeks. She was given instructions to return for fever greater than 101, abnormal discharge, recurrent pain, persistent nausea and vomiting. Time Spent: Less than 30 Minutes
[2017-09-01 06:02] LABS: HEPATITIS C VIRUS ANTIBODY <0.1 s/co ratio (0.0-0.9)
== END 2017-08-31 18:26 | disposition home or self-care (01) | DRG 418 ==
LOC: ER 02:27 → OBSVTOIN 05:20 → EH 05:20 → 2N 06:50
PROVIDERS: ADMIT Internal Medicine Geriatric Medicine; ATTEND Internal Medicine Geriatric Medicine
PROC: BF101ZZ Fluoroscopy of Bile Ducts using Low Osmolar Contrast (ICD-10-PCS; 2017-08-31)
PROC: 0FT44ZZ Resection of Gallbladder, Percutaneous Endoscopic Approach (ICD-10-PCS; principal; 2017-08-31 12:00)
DX: K80.10 Calculus of gallbladder with chronic cholecystitis without obstruction (principal); E87.2 Acidosis; B17.9 Acute viral hepatitis, unspecified; D72.829 Elevated white blood cell count, unspecified; E83.52 Hypercalcemia; J45.909 Unspecified asthma, uncomplicated; Z88.0 Allergy status to penicillin; Z88.2 Allergy status to sulfonamides
CPT/HCPCS: 36415; 74300; 76705; 790; 80053; 80061; 80074; 80307; 81001; 83690; 83735; 84703; 85025; 88304; 96361; 96374; 96375; 96376; 99285; J0131; J0330; J1100; J1170; J1885; J2250; J2405; J2550; J2704; J2765; J3010; J3480; J3490; J7030

== ENCOUNTER 2018-02-25 19:09 | Emergency (ER) | payer SELFPAY ==
--- NOTE | 2018-02-26 00:10 | ER Document Report ---
ED GI/ - General Chief Complaint: Abdominal Pain Stated Complaint: ABDOMINAL PAIN Time Seen by Provider: 02/25/18 20:59 Mode of Arrival: Ambulatory Information source: Patient TRAVEL OUTSIDE OF THE [place] IN LAST 30 DAYS: No - HPI Patient complains to provider of: Abdominal pain, Dysuria, Vaginal discharge Onset: Just prior to arrival Timing/Duration: Sudden Quality of pain: Achy, Dull Severity at maximum: Mild Severity in ED: Mild Pain Level: 2 Location: Vaginal Vaginal bleeding (Compared to normal period): None OB ultrasound done: No vitamins taken: No Sexual history: Active Associated symptoms: Dysuria, Vaginal discharge Exacerbated by: Denies Relieved by: Denies Similar symptoms previously: No Recently seen / treated by doctor: No - Related Data Allergies/Adverse Reactions: Penicillins Allergy (Verified 01/20/17 15:49) Sulfa (Sulfonamide Antibiotics) Allergy (Verified 01/20/17 15:49) Past Medical History - Social History Smoking Status: Never Smoker Chew tobacco use (# tins/day): No Frequency of alcohol use: Occasional Drug Abuse: Marijuana Family History: Reviewed & Not Pertinent Patient has suicidal ideation: No Patient has homicidal ideation: No Pulmonary Medical History: Reports: Hx Asthma - as a child Renal/ Medical History: Denies: Hx Peritoneal Dialysis Psychiatric Medical History: Denies: Hx Depression Review of Systems - Review of Systems Constitutional: denies: Chills, Fever EENT: No symptoms reported Cardiovascular: No symptoms reported Respiratory: No symptoms reported Gastrointestinal: Abdominal pain. denies: Nausea, Vomiting, Constipation Genitourinary: Dysuria, Discharge, Frequency, Urgency Female Genitourinary: Vaginal discharge. denies: Musculoskeletal: No symptoms reported Skin: No symptoms reported Hematologic/Lymphatic: No symptoms reported Neurological/Psychological: No symptoms reported -: Yes All other systems reviewed and negative Physical Exam - Vital signs Vitals: Temp Pulse Resp BP Pulse Ox 99.3 F 91 16 124/66 98 02/25/18 19:24 02/25/18 19:24 02/25/18 19:24 02/25/18 19:24 02/25/18 19:24 - General General appearance: Appears well, Alert - HEENT Head: Normocephalic, Atraumatic Eyes: Normal Pupils: PERRL - Respiratory Respiratory status: No respiratory distress Chest status: Nontender Breath sounds: Normal Chest palpation: Normal - Cardiovascular Rhythm: Regular Heart sounds: Normal auscultation Murmur: No - Abdominal Inspection: Normal Distension: No distension Bowel sounds: Normal Tenderness: Nontender Organomegaly: No organomegaly - Genitourinary External exam: Normal Speculum exam: Cervix closed, Vaginal discharge. No: Lesions, Vaginal lacerations Vaginal bleeding: None Bimanuel exam: Cervical motion tender, Bladder/Urethral tender, Other - Charperone was Ms. Izabela RN.. No: Adnexal mass, Adnexal tenderness, Uterus enlarged - Back Back: Normal, Nontender - Extremities General upper extremity: Normal inspection, Nontender, Normal color, Normal ROM , Normal temperature General lower extremity: Normal inspection, Nontender, Normal color, Normal ROM , Normal temperature, Normal weight bearing. No: Patel's sign - Neurological Neuro grossly intact: Yes Cognition: Normal Orientation: AAOx4 Saxon Coma Scale Eye Opening: Spontaneous Félix Coma Scale Verbal: Oriented Saxon Coma Scale Motor: Obeys Commands Félix Coma Scale Total: 15 Speech: Normal Motor strength normal: LUE, RUE, LLE, RLE Sensory: Normal - Psychological Associated symptoms: Normal affect, Normal mood - Skin Skin Temperature: Warm Skin Moisture: Dry Skin Color: Normal Course - Vital Signs Vital signs: Temp Pulse Resp BP Pulse Ox 98.2 F 91 16 111/66 98 02/26/18 05:00 02/25/18 19:24 02/26/18 01:01 02/26/18 05:00 02/26/18 05:01 - Laboratory Result Diagrams: 02/26/18 00:22 02/26/18 01:00 Laboratory results interpreted by me: 02/26/18 02/26/18 02/26/18 00:22 01:00 01:53 Seg Neuts % (Manual) 41 L Lymphocytes % (Manual) 46 H AST 56 H ALT 63 H Urine Urobilinogen Ur Leukocyte Esterase N.gonorrhoeae DNA (PCR) DETECTED H 02/26/18 02:07 Seg Neuts % (Manual) Lymphocytes % (Manual) AST ALT Urine Urobilinogen 2.0 H Ur Leukocyte Esterase SMALL H N.gonorrhoeae DNA (PCR) - Transfer of Care Notes: 02/26/18 02:10 Abdominal Pain. Dysuria. Vaginal Discharge. Discharge - Discharge Clinical Impression: PID (acute pelvic inflammatory disease) Abdominal pain Qualifiers: Abdominal location: lower abdomen, unspecified Qualified Code(s): R10.30 - Lower abdominal pain, unspecified UTI (urinary tract infection) Qualifiers: Urinary tract infection type: acute cystitis Hematuria presence: without hematuria Qualified Code(s): N30.00 - Acute cystitis without hematuria Condition: Stable Disposition: HOME, SELF-CARE Instructions: Abdominal Pain ([facility]), Pelvic Inflammatory Disease ([facility]) Additional Instructions: Please follow-up with your primary doctor tomorrow morning. Also bring your sexual partner to be tested for gonorrhea. Return to the emergency room if condition worsens. Prescriptions: Doxycycline Hyclate 100 mg PO BID #28 capsule Levofloxacin [Levaquin 750 mg Tablet] 750 mg PO DAILY #5 tablet Metronidazole [Flagyl 500 mg Tablet] 500 mg PO BID #28 tablet
[2018-02-26 00:34] LABS: MEAN CORPUSCULAR HGB CONC 35.4 g/dL (32.0-36.0)
[2018-02-26 00:37] LABS: HEMATOCRIT 38.8 % (36.0-47.0); HEMOGLOBIN 13.7 g/dL (12.0-15.5); MEAN CORPUSCULAR HEMOGLOBIN 32.9 pg (27.0-33.4); MEAN CORPUSCULAR VOLUME 93 fl (80-97); PLATELET COUNT 157 10^3/uL (150-450); RED BLOOD COUNT 4.18 10^6/uL (3.72-5.28); RED CELL DISTRIBUTION WIDTH 12.6 % (11.5-14.0); WHITE BLOOD COUNT 5.9 10^3/uL (4.0-10.5)
[2018-02-26 00:58] LABS: ABSOLUTE LYMPHOCYTES# (MANUAL) 2.8 10^3/uL (0.5-4.7); ABSOLUTE MONOCYTES # (MANUAL) 0.6 10^3/uL (0.1-1.4); ABSOLUTE NEUTROPHILS# (MANUAL) 2.4 10^3/uL (1.7-8.2); BASOPHILS % (MANUAL) 0 % (0-2); EOSINOPHILS % (MANUAL) 1 % (0-6); LYMPHOCYTES % (MANUAL) 46 % (13-45); MONOCYTES % (MANUAL) 10 % (3-13); SEGMENTED NEUTROPHILS % (MAN) 41 % (42-78); TOTAL CELLS COUNTED 100
[2018-02-26 01:00] LABS: PLATELET CLUMPS PRESENT; PLATELET COMMENT ADEQUATE; PLATELET LARGE PRESENT; RBC MORPHOLOGY COMMENT NORMO-CYTIC/CHROMIC
[2018-02-26 01:28] LABS: ALANINE AMINOTRANSFERASE 63 U/L (9-52); ALBUMIN 3.7 g/dL (3.5-5.0); ALKALINE PHOSPHATASE 89 U/L (38-126); ANION GAP 10 (5-19); ASPARTATE AMINO TRANSFERASE 56 U/L (14-36); BILIRUBIN,DIRECT 0.3 mg/dL (0.0-0.4); BILIRUBIN,TOTAL 0.5 mg/dL (0.2-1.3); BLOOD UREA NITROGEN 8 mg/dL (7-20); CALCIUM 8.7 mg/dL (8.4-10.2); CARBON DIOXIDE 25 mmol/L (22-30); CHLORIDE 107 mmol/L (98-107); GLUCOSE 107 mg/dL (75-110); LIPASE 82.1 U/L (23-300); POTASSIUM 3.9 mmol/L (3.6-5.0); SODIUM 142.3 mmol/L (137-145); TOTAL PROTEIN 7.2 g/dL (6.3-8.2)
[2018-02-26 02:06] LABS: BACTERIA (WET MOUNT) 4+ BACTERIA SEEN; EPITHELIALS (WET MOUNT) 3+ EPITHELIALS SEEN; T.VAGINALIS (WET MOUNT) NO TRICHOMONAS SEEN; WBCS (WET MOUNT) FEW WBCS SEEN; YEAST (WET MOUNT) NO YEAST SEEN
[2018-02-26 02:27] LABS: APPEARANCE,URINE CLEAR; BILIRUBIN,URINE NEGATIVE (NEGATIVE); COLOR,URINE YELLOW; GLUCOSE, URINE NEGATIVE (NEGATIVE); KETONES,URINE NEGATIVE (NEGATIVE); LEUKOCYTE ESTERASE,URINE SMALL (NEGATIVE); NITRITE,URINE NEGATIVE (NEGATIVE); PROTEIN,URINE NEGATIVE (NEGATIVE); URINE SPECIFIC GRAVITY 1.024
[2018-02-26] MEDS ORDERED: LEVOFLOXACIN 750 MG/D5W RTU 750 MG/150 ML RTUPB IV ONE (02:56)
[2018-02-26 03:31] LABS: CHLAM PCR NOT DETECTED (NOT DETECT)
[2018-02-26 03:36] LABS: GON PCR DETECTED (NOT DETECT)
[2018-02-26] MEDS ORDERED: GENTAMICIN SULFATE INJ 80 MG/2 ML VIAL IM STA (03:49)
[2018-02-26] MEDS ORDERED: AZITHROMYCIN 250 MG TABLET PO ONE (03:52)
[2018-02-26] MEDS ORDERED: METRONIDAZOLE 500 MG TABLET PO ONE (03:52)
[2018-02-26] MEDS ORDERED: ONDANSETRON HCL INJ/PF 4 MG/2 ML SDV IV ONE (03:53)
[2018-02-26 05:12] VITALS: BP 111/66
== END 2018-02-26 05:09 | disposition home or self-care (01) ==
LOC: ER 19:09
DX: N30.00 Acute cystitis without hematuria (principal); N73.9 Female pelvic inflammatory disease, unspecified; R10.30 Lower abdominal pain, unspecified; R30.0 Dysuria; N89.8 Other specified noninflammatory disorders of vagina; R35.0 Frequency of micturition; R39.15 Urgency of urination; J45.909 Unspecified asthma, uncomplicated
CPT/HCPCS: 99284; 96372; 96374; 36415; 87040; 87210; 83690; 85025; 81025; 80053; 81001; 87491; 87591; J1580; J2405

== ENCOUNTER 2018-05-04 09:18 | Emergency (ER) | payer SELFPAY ==
[2018-05-04 09:24] VITALS: BP 122/71
--- NOTE | 2018-05-04 10:11 | ER Document Report ---
HPI - HPI Patient complains to provider of: eye d/c Pain Level: 2 Context: Patient is a 22-year-old female presenting to the emergency department complaining of cough and congestion for the last month. Patient states this cough and congestion has been intermittent and she has not tried anything over- the-counter for same. Patient denies fever, chest pain, shortness of breath, nausea, diarrhea. Patient states she has had 2 episodes of posttussive vomiting yesterday. Patient states 3 days ago she tried old contacts in her right and left eye. Patient states since that incident she has woke up every morning with crusting to the right medial canthus. Patient denies any foreign body sensation, states in the morning and throughout the day she must wipe away mucoid discharge to the right eye. Patient states since then she has thrown away both contact lenses. Past medical history: None medications: None Allergies: Penicillin, sulfa Patient states she partakes in occasional EtOH use, denies illicit drug use, denies cigarette smoking. - CONSTITUTIONAL Constitutional: REPORTS: Chills. DENIES: Fever - EENT EENT: REPORTS: Eye problems. DENIES: Sore Throat, Ear Pain - NEURO Neurology: REPORTS: Headache, Vision blurred - visual acuity 20/20 bilateral. DENIES: Weakness, Dizzinesss / Vertigo - CARDIOVASCULAR Cardiovascular: DENIES: Chest pain - RESPIRATORY Respiratory: REPORTS: Coughing. DENIES: Trouble Breathing - GASTROINTESTINAL Gastrointestinal: DENIES: Abdominal Pain, Black / Bloody Stools - URINARY Urinary: DENIES: Dysuria, Urgency, Frequency - REPRODUCTIVE LMP: IUD, irregular Reproductive: DENIES: : - MUSCULOSKELETAL Musculoskeletal: DENIES: Extremity pain Past Medical History - General Information source: Patient - Social History Smoking Status: Never Smoker Chew tobacco use (# tins/day): No Drug Abuse: None Lives with: Family Family History: Reviewed & Not Pertinent Patient has suicidal ideation: No Patient has homicidal ideation: No Pulmonary Medical History: Reports: Hx Asthma - as a child Renal/ Medical History: Denies: Hx Peritoneal Dialysis Psychiatric Medical History: Denies: Hx Depression Past Surgical History: Reports: Hx Cholecystectomy Vertical Provider Document - CONSTITUTIONAL Agree With Documented VS: Yes Notes: GENERAL: Alert, interacts well. No acute distress. HEAD: Normocephalic, atraumatic. EYES: Pupils equal, round, and reactive to light. Extraocular movements intact. Minor conjunctival injection right eye, minor mucoid discharge medial canthus and matted eyelashes. No surrounding eyelid erythema or proptosis noted right eye. Left eye within normal limits. ENT: Oral mucosa moist, tongue midline. Nares patent, swollen turbinates bilaterally, TM's intact, nonerythematous, nonbulging. Pharynx within normal limits, non-erythematous, +1 tonsils bilaterally. No exudate or palatal petechiae noted. No frontal or ethmoid sinus tenderness upon palpation. NECK: Full range of motion. Supple. Trachea midline. No lymphadenopathy appreciated LUNGS: Clear to auscultation bilaterally, no wheezes, rales, or rhonchi. No respiratory distress. HEART: Regular rate and rhythm. No murmur ABDOMEN: Soft, non-tender. Non-distended. Bowel sounds present in all 4 quadrants. EXTREMITIES: Moves all 4 extremities spontaneously. No edema, normal radial and dorsalis pedis pulses bilaterally. No cyanosis. BACK: no cervical, thoracic, lumbar midline tenderness. No saddle anesthesia, normal distal neurovascular exam. NEUROLOGICAL: Alert and oriented x3. Normal speech. cranial nerves II through XII grossly intact. PSYCH: Normal affect, normal mood. SKIN: Warm, dry, normal turgor. No rashes or lesions noted. - INFECTION CONTROL TRAVEL OUTSIDE OF THE [place] IN LAST 30 DAYS: No Course - Re-evaluation Re-evalutation: 05/04/18 10:21 Discussed with patient likely viral diagnosis. Discussed need for antibiotic drops for right conjunctivitis. Also discussed stopping use of contact lens while on antibiotics therapy. Due to no adventitious lung sounds, frontal or ethmoid sinus tenderness, pneumonia and sinusitis unlikely. Patient SPO2 100% with no work of breathing. We will treat swollen turbinates and cough. Again discussed return precautions. - Vital Signs Vital signs: Temp Pulse Resp BP Pulse Ox 97.8 F 69 18 122/71 99 05/04/18 09:23 05/04/18 09:23 05/04/18 09:23 05/04/18 09:23 05/04/18 09:23 Discharge - Discharge Clinical Impression: Conjunctivitis Qualifiers: Conjunctivitis type: acute Acute conjunctivitis type: bacterial Laterality: right Qualified Code(s): H10.31 - Unspecified acute conjunctivitis, right eye Upper respiratory infection Qualifiers: URI type: unspecified viral URI Qualified Code(s): J06.9 - Acute upper respiratory infection, unspecified Condition: Stable Disposition: HOME, SELF-CARE Instructions: Conjunctivitis ([facility]), Eyedrop Use ([facility]), Upper Respiratory Illness ([facility]), Viral Syndrome ([facility]) Prescriptions: Benzonatate [Tessalon Perles 100 mg Capsule] 100 mg PO Q8HP PRN #40 capsule PRN Reason: Mometasone Furoate [Nasonex] 1 spray NS Q12 #1 spray.pump Ofloxacin 1 drop OS Q4H #1 bottle Forms: Return to Work
== END 2018-05-04 10:29 | disposition home or self-care (01) ==
LOC: ER 09:18
DX: H10.31 Unspecified acute conjunctivitis, right eye (principal); J06.9 Acute upper respiratory infection, unspecified; B97.89 Other viral agents as the cause of diseases classified elsewhere; R05 Cough; R68.83 Chills (without fever); R51 Headache; Z88.0 Allergy status to penicillin; Z88.2 Allergy status to sulfonamides
CPT/HCPCS: 99283

== ENCOUNTER → 2019-03-02 | Outpatient (CLI) | payer SELFPAY ==
--- NOTE | 2019-03-02 15:03 | RADIOLOGY REPORT (SQ) ---
EXAM DESCRIPTION: U/S [id number] TRNABD 1GES W/ODOP COMPLETED DATE/TIME: 03/02/2019 2:15 pm REASON FOR STUDY: ENCTR FOR SUPERVISION OF NORMAL 1ST , 1ST TRIMESTER (Z34.01) Z34.01 ENCN TR FOR SUPRVSN OF NORMAL FIRST PREG, FIRST TRIMES COMPARISON: None. TECHNIQUE: Transabdominal static and realtime grayscale images acquired of the pelvis. Additional se lected spectral and color Doppler images recorded. All images stored on PACs. bHCG: Not available. CLINICAL DATES: A weeks 2 days. LIMITATIONS: None. FINDINGS: FETUS: Single Living intrauterine . ULTRASOUND EGA: 8 weeks 5 days. ULTRASOUND CASEY: 10/07/2019 EFW: Not applicable less than 20 weeks. CRL: 2.08 cm. FHR: 173 beats per minute. SURVEY: Too early to assess. AMNIOTIC FLUID: Adequate amount. PLACENTA: Not yet developed due to early gestation. SUBCHORIONIC BLEED: No. SIZE OF BLEED: Not applicable. UTERUS: No masses. No anomalies. CERVICAL LENGTH: 2.5 cm. Closed. RIGHT ADNEXA: Ovary not identified due to poor acoustical window. No adnexal free fluid. No adnexal masses. LEFT ADNEXA: Normal ovary with normal vascular flow. No adnexal free fluid. No adnexal masses. FREE FLUID: None. OTHER: No other significant finding. IMPRESSION: LIVING INTRAUTERINE . EGA 8 WEEKS 5 DAYS. Trimester of : First trimester - 0 to 13 weeks. TECHNICAL DOCUMENTATION: JOB ID: [id number] [employer]- All Rights Reserved Reading location - IP/workstation name: [email or web address]
== END ==
LOC: RAD 13:03
PROVIDERS: ATTEND Midwife
DX: Z34.01 Encounter for supervision of normal first pregnancy, first trimester (principal)
CPT/HCPCS: 76801

== ENCOUNTER 2019-05-12 11:43 | Emergency (ER) | payer MEDICAID ==
--- NOTE | 2019-05-12 12:04 | ER Document Report ---
HPI - HPI Time Seen by Provider: 05/12/19 11:46 Notes: 23-year-old female 1 para 0, 19 weeks . presents to the ED with complaints of sore throat and sinus congestion for the last 2 days. Worse with time, nothing makes better. Has not tried any nlmr-elf-ailgogb medication. P atient denies any smoking but states she does vape. decreased eating but is drinking without any issues. LMP is approximately 2 weeks ago. Does not have a primary care provider in this area. Denies fevers, chills, chest pain,palpitations, shortness of breath, dyspnea, nausea, vomiting, diarrhea, abdominal pain, hematuria,blurred vision, double vision, loss of vision, speech changes, LH, dizziness, syncope, headaches, wheezing, neck pain, weakness, bowel or bladder dysfunction, saddle anesthesia, numbness or tingling in bilateral upper or lower extremities equally, muscle paralysis, weakness in bilateral upper or lower extremities equally or rash. Denies IV drug use. - REPRODUCTIVE Reproductive: DENIES: : Past Medical History - General Information source: Patient - Social History Smoking Status: Unknown if Ever Smoked Family History: Reviewed & Not Pertinent Pulmonary Medical History: Reports: Hx Asthma - as a child Renal/ Medical History: Denies: Hx Peritoneal Dialysis Psychiatric Medical History: Denies: Hx Depression Past Surgical History: Reports: Hx Cholecystectomy Vertical Provider Document - CONSTITUTIONAL Agree With Documented VS: Yes Exam Limitations: No Limitations General Appearance: WD/WN Notes: PHYSICAL EXAMINATION:reviewed vital signs by RN GENERAL: Well-appearing, well-nourished and in no acute distress. HEAD: Atraumatic, normocephalic. EYES: Pupils equal round and reactive to light, extraocular movements intact, conjunctiva are normal. ENT: TM intact with bilateral serous effusion, no erythema. Nares boggy bilaterally, oropharynx with erythema without exudates. Moist mucous membranes. NECK: Normal range of motion, supple without lymphadenopathy LUNGS: Breath sounds clear to auscultation bilaterally and equal. No wheezes rales or rhonchi. HEART: Regular rate and rhythm without murmurs ABDOMEN: Soft, nontender, nondistended abdomen. No guarding, no rebound. No masses appreciated. Female : deferred Musculoskeletal: Normal range of motion, no pitting or edema. No cyanosis. NEUROLOGICAL: Cranial nerves grossly intact. Normal speech, normal gait. Normal sensory, motor exams PSYCH: Normal mood, normal affect. SKIN: Warm, Dry, normal turgor, no rashes or lesions noted. - INFECTION CONTROL TRAVEL OUTSIDE OF THE [place] IN LAST 30 DAYS: No Course - Re-evaluation Re-evalutation: 05/12/19 12:28 Afebrile vital stable no distress. Nurse's notes reviewed. Rapid strep negative. Will send for throat culture will call if symptoms are positive and call in antibiotic.Advised to increase fluids, alternate between Tylenol and ibuprofen, wash hands frequently. [facility] I estimate there is LOW risk for ACUTE CORONARY SYNDROME, PULMONARY EMBOLI, RESPIRATORY FAILURE, SEPSIS OR MENINGITIS, thus I consider the discharge disposition reasonable. I have reevaluated this patient multiple times and no significant life threatening changes are noted. The patient and I have discussed the diagnosis and risks, and we agree with discharging home with close follow- up. We also discussed returning to the Emergency Department immediately if new or worsening symptoms occur. We have discussed the symptoms which are most concerning (e.g., changing or worsening pain, trouble swallowing or breathing, neck stiffness, fever) that necessitate immediate return. 05/12/19 13:29 - Vital Signs Vital signs: Temp Pulse Resp BP Pulse Ox 97.7 F 71 116/64 100 05/12/19 11:47 05/12/19 11:47 05/12/19 11:47 05/12/19 11:47 Discharge - Discharge Clinical Impression: Pharyngitis, Viral URI, Condition: Stable Disposition: HOME, SELF-CARE Instructions: Acetaminophen, Sore Throat ([facility]), Upper Respiratory Illness ([facility]), Viral Syndrome ([facility]), ([facility]) Additional Instructions: Return immediately for any new or worsening symptoms. Continue taking , blow nose regularly, alternate between humidifier and hot shower to help drain your sinuses, wash hands frequently. Follow-up with primary care provider within the next 24 to 48 hours. Rapid strep was negative. Follow up with primary care provider, call tomorrow to make followup appointment. Prescriptions: Fluticasone Propionate [Flonase Nasal Harvey 50 Mcg/Harvey 16 gm] 1 spray NASL Q12 #1 bottle Referrals: TIEN FERRER CNM [NO LOCAL MD] - Follow up as needed ANNIE SHELTON MD [ACTIVE STAFF] - Follow up as needed
[2019-05-12 13:16] VITALS: BP 130/71
== END 2019-05-12 13:28 | disposition home or self-care (01) ==
LOC: ER 11:43
DX: O26.892 Other specified pregnancy related conditions, second trimester (principal); J06.9 Acute upper respiratory infection, unspecified; J02.9 Acute pharyngitis, unspecified; R09.81 Nasal congestion; Z3A.19 19 weeks gestation of pregnancy; J45.909 Unspecified asthma, uncomplicated
CPT/HCPCS: 87070; 87077; 87880; 99283

== ENCOUNTER 2019-06-28 17:02 | Outpatient (CLI) | payer MEDICAID ==
[2019-06-28 18:07] LABS: BACTERIA (WET MOUNT) 4+ BACTERIA SEEN; EPITHELIALS (WET MOUNT) 4+ EPITHELIALS SEEN; RBCS (WET MOUNT) RARE RBCS SEEN; T.VAGINALIS (WET MOUNT) NO TRICHOMONAS SEEN; WBCS (WET MOUNT) 2+ WBCS SEEN; YEAST (WET MOUNT) NO YEAST SEEN
[2019-06-28 18:09] LABS: APPEARANCE,URINE SLIGHTLY-CLOUDY; BILIRUBIN,URINE NEGATIVE (NEGATIVE); COLOR,URINE AMBER; GLUCOSE, URINE NEGATIVE (NEGATIVE); KETONES,URINE NEGATIVE (NEGATIVE); LEUKOCYTE ESTERASE,URINE NEGATIVE (NEGATIVE); NITRITE,URINE NEGATIVE (NEGATIVE); PROTEIN,URINE 30 mg/dL (NEGATIVE); URINE SPECIFIC GRAVITY 1.024
[2019-06-28 18:43] LABS: URINE BARBITURATES SCREEN NEGATIVE; URINE BENZODIAZEPINES SCREEN NEGATIVE; URINE COCAINE SCREEN NEGATIVE; URINE METHADONE SCREEN NEGATIVE; URINE PHENCYCLIDINE SCREEN NEGATIVE
[2019-06-28 18:48] LABS: URINE AMPHETAMINES SCREEN UNCONFIRMED POSITIVE; URINE MARIJUANA (THC) SCREEN UNCONFIRMED POSITIVE
--- NOTE | 2019-06-28 19:52 | RADIOLOGY REPORT (SQ) ---
EXAM DESCRIPTION: U/S OB LIMITED COMPLETED DATE/TIME: 06/28/2019 7:39 pm REASON FOR STUDY: wellbeing, vaginal discharge COMPARISON: 03/02/2019 TECHNIQUE: Limited transabdominal grayscale ultrasound for evaluation of specific requested obstetri luis parameters. LIMITATIONS: None. FINDINGS: CERVICAL LENGTH: 3.7 cm Closed. YUNI: 14 cm. FHR: 143 beats per minute. PRESENTATION: Cephalic. PLACENTA: Anterior ANATOMY: Not assessed OTHER: No other significant findings. IMPRESSION: LIMITED OBSTETRICAL ULTRASOUND WITH MEASURED PARAMETERS DELINEATED ABOVE. Trimester of : Second trimester - 13 weeks 1 day to 27 weeks 6 days. TECHNICAL DOCUMENTATION: JOB ID: [id number] [employer]- All Rights Reserved Reading location - IP/workstation name: [email or web address]
[2019-06-28 20:01] LABS: CHLAM PCR NOT DETECTED (NOT DETECT)
== END 2019-06-28 20:23 | disposition home or self-care (01) ==
LOC: LC 17:02
PROVIDERS: ATTEND Student in an Organized Health Care Education/Training Program
DX: O99.89 Other specified diseases and conditions complicating pregnancy, childbirth and the puerperium (principal); N89.8 Other specified noninflammatory disorders of vagina; Z3A.27 27 weeks gestation of pregnancy; R10.2 Pelvic and perineal pain
CPT/HCPCS: 59899; 87210; 81001; 80307 ×2; 87491; 87591; 76815; Q0114; G0480 ×3; 80349

== ENCOUNTER 2019-08-24 23:41 | Outpatient (CLI) | payer MEDICAID ==
[2019-08-25 01:30] LABS: APPEARANCE,URINE CLEAR; BILIRUBIN,URINE NEGATIVE (NEGATIVE); COLOR,URINE YELLOW; GLUCOSE, URINE NEGATIVE (NEGATIVE); KETONES,URINE NEGATIVE (NEGATIVE); LEUKOCYTE ESTERASE,URINE NEGATIVE (NEGATIVE); NITRITE,URINE NEGATIVE (NEGATIVE); PROTEIN,URINE NEGATIVE (NEGATIVE); URINE SPECIFIC GRAVITY 1.009; UROBILINOGEN,URINE NEGATIVE mg/dL (<2.0)
[2019-08-25 01:39] LABS: URINE BARBITURATES SCREEN NEGATIVE; URINE BENZODIAZEPINES SCREEN NEGATIVE; URINE COCAINE SCREEN NEGATIVE; URINE METHADONE SCREEN NEGATIVE; URINE PHENCYCLIDINE SCREEN NEGATIVE
[2019-08-25 01:46] LABS: URINE AMPHETAMINES SCREEN UNCONFIRMED POSITIVE
[2019-08-25 01:47] LABS: URINE MARIJUANA (THC) SCREEN UNCONFIRMED POSITIVE
== END 2019-08-25 01:50 | disposition home or self-care (01) ==
LOC: LC 23:41
PROVIDERS: ATTEND Obstetrics & Gynecology Gynecology
PROC: 4A1HXCZ Monitoring of Products of Conception, Cardiac Rate, External Approach (ICD-10-PCS; principal; 2019-08-24)
DX: O26.893 Other specified pregnancy related conditions, third trimester (principal); R10.2 Pelvic and perineal pain; Z3A.34 34 weeks gestation of pregnancy
CPT/HCPCS: 59025; 81001; 80307 ×2; G0480 ×3; 80349

== ENCOUNTER 2019-09-09 11:21 | Inpatient (IN) | payer MEDICAID ==
--- NOTE | 2019-09-09 11:32 | Non Stress Test Report ---
Non Stress Test Datetime Report Generated by CPN: 09/09/2019 11:32 DEMOGRAPHIC EGA NST: 34.1 INDICATION Indication for Study (NST) Other: Labor check MONITORING Monitor Explained: Monitor Explained; Test Explained; Patient Verbalized Understanding Time on Monitor: 08/24/2019 23:56 Time off Monitor: 08/25/2019 01:34 NST Duration: 98 NST INTERVENTIONS NST Interventions: PO Hydration Physician Notified NST: Dr. Morris BABY A: [id number] BABY A Movement : Present Contraction Frequency : none FHR Baseline : 125 Accelerations : 15X15 Decelerations : None Variability : Moderate 6-25bpm NST Review: Questionable if Meets Criteria for Reactive NST NST Review and Verified By : Natalio Barreraavajosseline RN NST Results: Reactive NST REPORT Report Trigger: Send Report
[2019-09-09] MEDS ORDERED: CEFAZOLIN 2 GM/D5W RTU 50 ML IV ONE (11:56)
[2019-09-09] MEDS ORDERED: MISOPROSTOL 0.1 MG TABLET PO ONE (12:35)
[2019-09-09 12:38] LABS: APPEARANCE,URINE CLOUDY; BILIRUBIN,URINE NEGATIVE (NEGATIVE); COLOR,URINE AMBER; GLUCOSE, URINE NEGATIVE (NEGATIVE); KETONES,URINE NEGATIVE (NEGATIVE); LEUKOCYTE ESTERASE,URINE TRACE (NEGATIVE); NITRITE,URINE NEGATIVE (NEGATIVE); PROTEIN,URINE 100 mg/dL (NEGATIVE); URINE SPECIFIC GRAVITY 1.012; UROBILINOGEN,URINE NEGATIVE mg/dL (<2.0)
[2019-09-09 12:39] LABS: ABSOLUTE EOSINOPHILS # (AUTO) 0.1 10^3/uL (0.0-0.6); ABSOLUTE LYMPHOCYTES (AUTO) 1.9 10^3/uL (0.5-4.7); ABSOLUTE MONOCYTES (AUTO) 0.5 10^3/uL (0.1-1.4); ABSOLUTE NEUT (AUTO) 6.1 10^3/uL (1.7-8.2); BASOPHILS % (AUTO) 0.3 % (0-2); EOSINOPHILS % (AUTO) 1.1 % (0-6); HEMATOCRIT 36.7 % (36.0-47.0); LYMPHOCYTES % (AUTO) 21.8 % (13-45); MEAN CORPUSCULAR HEMOGLOBIN 31.6 pg (27.0-33.4); MEAN CORPUSCULAR HGB CONC 35.4 g/dL (32.0-36.0); MEAN CORPUSCULAR VOLUME 89 fl (80-97); PLATELET COUNT 141 10^3/uL (150-450); RED BLOOD COUNT 4.11 10^6/uL (3.72-5.28); RED CELL DISTRIBUTION WIDTH 13.3 % (11.5-14.0); SEGMENTED NEUTROPHILS % (AUTO) 70.8 % (42-78); TOTAL CELLS COUNTED % (AUTO) 100 %; WHITE BLOOD COUNT 8.7 10^3/uL (4.0-10.5)
[2019-09-09 12:41] LABS: URINE BARBITURATES SCREEN NEGATIVE; URINE BENZODIAZEPINES SCREEN NEGATIVE; URINE COCAINE SCREEN NEGATIVE; URINE METHADONE SCREEN NEGATIVE; URINE PHENCYCLIDINE SCREEN NEGATIVE
[2019-09-09 12:47] LABS: URINE AMPHETAMINES SCREEN UNCONFIRMED POSITIVE; URINE MARIJUANA (THC) SCREEN UNCONFIRMED POSITIVE
[2019-09-09] MEDS ORDERED: CEFAZOLIN 1 GM/D5W RTU 1 GM/50 ML RTUPB IV ONE ×3 (12:50→19:20)
[2019-09-09] MEDS: RINGERS SOLUTION,LACTATED 1,000 ML IV PRN (13:00)
[2019-09-09] MEDS ORDERED: MISOPROSTOL 0.1 MG TABLET ONE (13:05)
[2019-09-09] MEDS ORDERED: CEFAZOLIN 2 GM/D5W RTU 2 GM/50 ML RTUPB IV SCH (13:30)
[2019-09-09 13:47] LABS: CHLAM PCR NOT DETECTED (NOT DETECT)
[2019-09-09] MEDS ORDERED: CEFAZOLIN 1 GM/D5W RTU 1 GM/50 ML RTUPB IV SCH (14:00)
[2019-09-09] MEDS ORDERED: BETAMET ACET/BETAMET NA INJ 6 MG/1 ML ONE (14:29)
[2019-09-09] MEDS ORDERED: BETAMET ACET/BETAMET NA INJ 6 MG/1 ML IM ONE (14:52)
[2019-09-09] MEDS ORDERED: CEFAZOLIN 2 GM/D5W RTU 2 GM/50 ML RTUPB IV ONE (14:52)
[2019-09-09] MEDS ORDERED: MISOPROSTOL 0.2 MG TABLET ONE (15:34)
[2019-09-09] MEDS ORDERED: OXYTOCIN 10 UNIT/ML VIAL ONE (15:34)
[2019-09-09] MEDS ORDERED: OXYTOCIN/NORMAL SALINE 20 UNIT/1,000 ML RTUINJ ONE (15:34)
[2019-09-09] MEDS ORDERED: LIDOCAINE 1% INJ-PF (10 MG/ML) 30 ML SDV ONE (15:34)
--- NOTE | 2019-09-09 15:49 | Admission Physical ---
Datetime Report Generated by CPN: 09/09/2019 15:48 CURRENT ADMISSION Hx Assessment: The History has been Reviewed and is Current Chief Complaint: Suspected Ruptured Membranes Indication for Induction: Other Indication for Induction- Other: PPROM Admit Impression : , Intrauterine Admit Plan: Admit to Unit; Initiate Labor Protocol; Initiate Labor Induction Protocol ALLERGIES Medication Allergies: No Medication Allergies: Penicillins/Hives (09/09/2019); Sulfa (Sulfonamide Antibiotics) (08/24/2019) Latex: No Latex Allergies Food Allergies: none Environmental Allergies: none OBSTETRICAL HISTORY EDC: 10/05/2019 00:00 : 1 Para: 0 Term: 0 : 0 SAB: 0 IAB: 0 Ectopic: 0 Livin Cesareans: 0 VBACs: 0 Multiple Births: 0 Gestational Diabetes: No Rh Sensitization: No Incompetent Cervix: No NAZANIN: No Infertility: No ART Treatment: No Uterine Anomaly: No IUGR: No Hx Previous C/S: No Macrosomia: No Hx Loss/Stillborn: No Hx : No Placenta Previa/Abruption: No Depression/PP Depression: Yes PTL/PROM: No Post Hemorrhage: No Current Procedures: Ultrasound Obstetrical History Comments: G1- current SEE RECORDS Alcohol: Yes Alcohol Frequency: Occasional Advised to Stop: Yes Alcohol Comments: pt states glass of wine occasionally Marijuana : Yes Cocaine: No Other Illicit Drugs: Yes Illicit Drug Comments: pt states she took an adderall a couple days ago. took it from her mothers rx. Cigarettes: Never Smoker. [id number] MEDICAL HISTORY Diabetes: No Blood Transfusion: No Pulmonary Disease (Asthma, TB): No Breast Disease: No Hypertension: No [employer] Surgery: No Heart Disease: No Hosp/Surgery: Yes Autoimmune Disorder: No Anesthetic Complications: No Kidney Disease: No Abnormal Pap Smear: Yes Neuro/Epilepsy: No Psychiatric Disorders: Yes Other Medical Diseases: No Hepatitis/Liver Disease: No Significant Family History: No Varicosities/Phlebitis: No Trauma/Violence : No Thyroid Dysfunction: No Medical History Comments: migraines, cholecystectomy; [facility], pt has family hx of bipolar disorder, schizophrenia INFECTIOUS HISTORY Gonorrhea: No Genital Herpes: Yes Chlamydia: No Tuberculosis: No Syphilis: No Hepatitis: No HIV/AIDS Exposure: No Rash or Viral Illness: No HPV: No Infectious History Comments: Pt states FOB has a hx of genital herpes, pt denies any outbreaks ever, FOB denies recent outbreak PHYSICAL EXAM General: Normal Heart: Normal Lungs: Normal Abdomen: Normal Extremities: Normal Vital Signs: Reviewed; Within Normal Limits VAGINAL EXAM Contraction Comments: irregular MEMBRANES Membranes: Ruptured Amniotic Fluid Color: Meconium, Heavy FETUS A EGA: 36.2 Monitoring: External US FHR- Baseline: 125 Variability: Moderate 6-25bpm Decelerations: None FHR Category: Category I Presentation: Vertex Admit Comment: 24yo G1 @ 36w2d into L_D with PROM @ 0830. Pt is A positive, RI, GBS unknown with LGSIL pap. Hx also significant for Obesity (BMI 31 @ NOB), cholecystectomy and reports THC, Alcohol and adderall use in . Cultures obtained on admission and one dose of betamethasone given as well as one dose of po cytotec pt without contractions on admission. Ancef also given due to PCN allergy and GBS unknown. Dr. Gomez is the OB correspondent today and aware of poc. Discharge planning placed for hx of drug abuse. PLANS FOR LABOR AND DELIVERY Labor and Delivery: None Pain Management: Medications Feeding Preference: Both Benefit of Breast Feed Discussed: Yes Circumcision: N/A INFORMED CONSENT Assignment: Colleen Gomez MD Signature: with User ID: [email or web address] : with User ID: [email or web address]
[2019-09-09] MEDS ORDERED: MORPHINE SULFATE 10 MG/ML INJ ONE (16:16)
[2019-09-09] MEDS ORDERED: LORAZEPAM INJ 2 MG/1 ML VIAL ONE (16:22)
[2019-09-09] MEDS ORDERED: ONDANSETRON HCL INJ/PF 4 MG/2 ML SDV ONE (16:34)
[2019-09-09] MEDS ORDERED: LORAZEPAM INJ 2 MG/1 ML VIAL IV ONE (17:00)
[2019-09-09] MEDS ORDERED: ONDANSETRON HCL INJ/PF 4 MG/2 ML SDV IV ONE (17:00)
[2019-09-09] MEDS ORDERED: MORPHINE SULFATE 10 MG/ML INJ IV ONE (17:00)
[2019-09-09] MEDS ORDERED: PHENYLEPHRINE HCL INJ/PF 10 MG/1 ML SDV ONE (18:13)
[2019-09-09] MEDS ORDERED: FENTANYL CITRATE INJ/PF 100 MCG/2 ML AMPUL ONE (18:13)
[2019-09-09] MEDS ORDERED: EPHEDRINE SULFATE INJ 50 MG/1 ML AMPULE ONE (18:13)
[2019-09-09] MEDS ORDERED: FENTANYL/BUPIVACAINE/NS/PF 300 MCG/150 ML RTUINJ EPI ONE (18:14)
[2019-09-09] MEDS ORDERED: BUPIVACAINE HCL 0.25 % INJ/PF (2.5 MG/1 ML) 30 ML VIAL ONE (18:14)
[2019-09-10] MEDS ORDERED: CEFAZOLIN 1 GM/D5W RTU 1 GM/50 ML RTUPB IV ONE ×2 (00:45→07:05)
[2019-09-10] MEDS: CEFAZOLIN 1 GM/D5W RTU 1 GM/50 ML RTUPB IV SCH ×4 (01:24→18:05)
[2019-09-10] MEDS ORDERED: FENTANYL/BUPIVACAINE/NS/PF 300 MCG/150 ML RTUINJ EPI ONE (05:51)
[2019-09-10] MEDS ORDERED: OXYTOCIN/NORMAL SALINE 20 UNIT/1,000 ML RTUINJ IV PRN ×2 (06:40→11:19)
[2019-09-10] MEDS ORDERED: LIDOCAINE 2% INJ-PF (20 MG/ML) 10 ML AMPUL ONE ×2 (10:13→10:20)
[2019-09-10] MEDS ORDERED: EPHEDRINE SULFATE INJ 50 MG/1 ML AMPULE ONE ×2 (10:27→10:32)
[2019-09-10] MEDS ORDERED: CEFAZOLIN 1 GM/D5W RTU 2 GM/100 ML RTUPB IV ONE (10:30)
[2019-09-10] MEDS ORDERED: CITRIC ACID/SODIUM CITRATE ORAL SOLN 15 ML UDCUP ONE (10:30)
[2019-09-10] MEDS ORDERED: FENTANYL CITRATE INJ/PF 100 MCG/2 ML AMPUL ONE (10:32)
[2019-09-10] MEDS ORDERED: KETOROLAC TROMETHAMINE INJ/PF 30 MG/1 ML SDV ONE (10:32)
[2019-09-10] MEDS ORDERED: OXYTOCIN 10 UNIT/ML VIAL ONE ×2 (10:32→11:22)
[2019-09-10] MEDS ORDERED: OXYTOCIN/NORMAL SALINE 0 UNIT/0 ML RTUINJ ONE (10:33)
[2019-09-10] MEDS ORDERED: ONDANSETRON HCL INJ/PF 4 MG/2 ML SDV ONE (10:33)
[2019-09-10] MEDS ORDERED: MIDAZOLAM 2 MG/2 ML INJ ONE (10:33)
[2019-09-10] MEDS ORDERED: ACETAMINOPHEN 1,000 MG/100 ML RTUPB IV ONE (10:33)
[2019-09-10] MEDS ORDERED: SIMETHICONE 80 MG TAB.CHEW PO PRN (11:19)
[2019-09-10] MEDS ORDERED: ACETAMINOPHEN 1,000 MG/100 ML RTUPB IV PRN (11:19)
[2019-09-10] MEDS ORDERED: ACETAMINOPHEN 325 MG TABLET PO PRN (11:19)
[2019-09-10] MEDS ORDERED: MEASLES,MUMPS&RUBELLA VACC/PF 0.5 ML VIAL SUBCUT PRN (11:19)
[2019-09-10] MEDS ORDERED: DIPH/PERTUSS(ACELL)/TETANUS VAC/PF 0.5 ML SYR (>=10YO) IM PRN (11:19)
[2019-09-10] MEDS ORDERED: PROMETHAZINE HCL INJ 25 MG/1 ML VIAL IV PRN (11:19)
--- NOTE | 2019-09-10 11:23 | Operative Report ---
Operative Report DATE OF SURGERY: 09/10/19 PREOPERATIVE DIAGNOSIS: IUP at 36 weeks 5 days rupture membranes drug a buse failure to progress POSTOPERATIVE DIAGNOSIS: Same OPERATION: Family left low transverse delivery of viable female SURGEON: GRIFFIN STEINBERG ANESTHESIA: Epidural TISSUE REMOVED OR ALTERED: Placenta PROCEDURE: The patient was taken to the operating room where spinal anesthesia was obtained and found to be adequate. She was then prepped and draped in the normal sterile fashion and placed in the dorsal supine position with a leftward tilt. A Pfannenstiel skin incision was then made and carried through to the underlying layers of the fascia with the scalpel. The fascia was incised in the midline and the incision extended laterally with the Hernandez scissors. The superior aspect of the fascial incision was then grasped with Orlando clamps elevated and the underlying rectus muscles dissected off bluntly. Attention was then turned to the inferior aspect of the fascial incision which in a similar fashion was grasped, tented up with Beatriz clamps, and the rectus muscles dissected off bluntly. The rectus muscles were then in the midline and the peritoneum at the amount identified and entered bluntly. The peritoneal incision was then extended superiorly and inferiorly with good visualization of the bladder. [The bladder blade was inserted and the vesicouterine peritoneum identified grasped with [place] pickups and entered sharply with the Metzenbaum scissors. His incision was then extended laterally with the Metzenbaum scissors and a bladder flap created digitally. The bladder blade was then reinserted and the lower uterine segment incised in a transverse fashion with the scalpel. The uterine incision was then extended bluntly. The bladder blade was removed and the infant's head was delivered from cephalic presentation atraumatically. The nose and mouth were suctioned and the cord doubly clamped and cut. And the was handed off to waiting pediatricians. The placenta was then delivered manully and the uterus exteriorized and cleared of all clots and debris. The uterine incision was then repaired with 1-0 Vicryl in a running locked fashion. A second layer of the same suture was used to obtain hemostasis via imbrication of the initial layer. The uterus was returned to the patient's abdomen. The gutters were cleared of all clots and debris. All operative sites were noted to be hemostatic. The fascia was reapproximated with 0 Vicryl in a running fashion from each lateral edge to the midline. The patient tolerated the procedure well. Sponge lap needle and instrument counts are correct -2. 2 g of Ancef were given prior to skin incision. The patient was taken to the recovery area awake and in stable condition.
[2019-09-10] MEDS: RINGERS SOLUTION,LACTATED 1,000 ML IV PRN (12:38)
[2019-09-10] MEDS ORDERED: MORPHINE SULFATE 10 MG/ML INJ ONE (12:47)
--- NOTE | 2019-09-10 13:50 | Delivery Summary ---
Del Sum A-C Datetime Report Generated by CPN: 09/10/2019 13:49 DELIVERY PERSONNEL DELIVERY PERSONNEL: [id number] Delivery Doctor:: Basim Morris MD Anesthesiologist:: Josiah Maloney MD ASBESTOS ABATEMENT TECHNICIAN:: Ron Cartagena, ASBESTOS ABATEMENT TECHNICIAN Labor and Delivery Nurse:: Pushpa Pena RN Soda Fountain Manager:: Radha Joseph RN Circulation Crew Leader/PULL THROUGH HOOKER: [facility] Circulation Crew Leader/PULL THROUGH HOOKER: Denisse Lafleur, AUTO TECHNICIAN MATERNAL INFORMATION Delivery Anesthesia: Epidural Medications After Delivery: Pitocin Drip 20 Units/1000ml NSS Delivery QBL: 510 Maternal Complications: Premature Rupture of Membranes LABOR SUMMARY EDC: 10/05/2019 00:00 No. Babies in Womb: 1 Attempted: No Labor Anesthesia: Epidural LABOR INFORMATION Reason for Induction: Premature Rupture of Membranes Cervical Ripening Agents: Cytotec @ 50 mcg PO Oxytocin: Augmentation Group B Beta Strep: unknown Antibiotics # of Doses: 2 Antibiotics Time of Last Dose: 699 Name of Antibiotic Given: Ancef Steroids Given: None Reason Steroids Not Administered: Not Applicable MEMBRANES Membranes Rupture Method: Spontaneous Rupture of Membranes: 09/09/2019 08:30 Length of Rupture (hr): 26.48 Amniotic Fluid Color: Moderate Meconium Amniotic Fluid Amount: Moderate Amniotic Fluid Odor: Normal STAGES OF LABOR Stage 3 hr: 0 Stage 3 min: 1 VAGINAL DELIVERY Episiotomy: None Laceration #1: None Laceration Extension #1: N/A Laceration Repair: Not Applicable Sponge Count Correct: N/A Sharps Count Correct: N/A CSECTION DELIVERY Primary Indication: Secondary Arrest of Dilatation Secondary Indication: N/A CSection Urgency: Non-Scheduled CSection Incidence: Primary Labor: No Labor Elective: N/A CSection Incision: Lower Uterine Transverse BABY A INFORMATION Delivery Date/Time: 09/10/2019 10:59 Method of Delivery: Nurse Controlled Delivery: No Born in Route : No : N/A Forceps: N/A Vacuum Extraction: N/A Shoulder Dystocia : No PRESENTATION/POSITION BABY A Presentation: Cephalic Cephalic Presentation: Vertex Breech Presentation: N/A PLACENTA INFORMATION BABY A Placenta Delivery Time : 09/10/2019 11:00 Placenta Method of Delivery: Manual Removal Placenta Status: Delivered SCORES BABY A Heart Rate 1 min: >100 bpm Resp Effort 1 min: Good Cry Reflex Irritability 1 min: Cough or Sneeze or Pulls Away Muscle Tone 1 min: Some Flexion of Extremities Color 1 min: Body [place], Extremities Blue Resuscitation Effort 1 min: Tactile Stimulation SCORE 1 MIN: 8 Heart Rate 5 min: >100 bpm Resp Effort 5 min: Good Cry Reflex Irritability 5 min: Cough or Sneeze or Pulls Away Muscle Tone 5 min: Some Flexion of Extremities Color 5 min: Body [place], Extremities Blue Resuscitation Effort 5 min: Tactile Stimulation SCORE 5 MIN: 8 INFANT INFORMATION BABY A Gestational Age at Delivery: 36.3 Gestational Status: Late - 34- 36.6 Weeks Infant Outcome : Liveborn Condition : Stable Infant Sex: Female IDENTIFICATION BABY A Infant Verification Date/Time: 09/10/2019 12:05 ID Band Number: [id number] Mother's Name Verified: Yes RN Verifying : MMobley RN Additional Verifying Personnel: TMartin RN WEIGHT/LENGTH BABY A Infant Birthweight (gm): 2381 Weight (lb): 5 Infant Weight (oz): 4 Infant Length (in): 17.00 Length (cm): 43.18 CORD INFORMATION BABY A Nuchal Cord : N/A Cord Blood Taken: Yes-For Storage (Mom's Blood type +) Infant Suction: None ASSESSMENT BABY A Complications: Meconium Physical Findings at Delivery: Within Normal Limits Respirations: Appears Normal Skin to Skin: No Transferred To: NICU BABY B INFORMATION : N/A SIGNATURES Signature: with User ID: [email or web address]
[2019-09-10] MEDS: OXYCODONE-ACETAMINOPHEN 5-325 MG TABLET PO PRN ×2 (15:57→20:12)
[2019-09-10] MEDS: DOCUSATE SODIUM 100 MG CAPSULE PO SCH (17:24)
[2019-09-10] MEDS: KETOROLAC TROMETHAMINE INJ/PF 30 MG/1 ML SDV IV SCH (17:25)
[2019-09-11] MEDS: CEFAZOLIN 1 GM/D5W RTU 1 GM/50 ML RTUPB IV SCH ×4 (00:28→18:15)
[2019-09-11] MEDS: KETOROLAC TROMETHAMINE INJ/PF 30 MG/1 ML SDV IV SCH (02:39)
[2019-09-11] MEDS: IBUPROFEN 800 MG TABLET PO SCH ×4 (06:19→23:37)
[2019-09-11 06:23] LABS: HEMATOCRIT 31.9 % (36.0-47.0); HEMOGLOBIN 11.6 g/dL (12.0-15.5); MEAN CORPUSCULAR HEMOGLOBIN 32.3 pg (27.0-33.4); MEAN CORPUSCULAR HGB CONC 36.2 g/dL (32.0-36.0); MEAN CORPUSCULAR VOLUME 89 fl (80-97); PLATELET COUNT 139 10^3/uL (150-450); RED BLOOD COUNT 3.58 10^6/uL (3.72-5.28); RED CELL DISTRIBUTION WIDTH 13.8 % (11.5-14.0); WHITE BLOOD COUNT 14.4 10^3/uL (4.0-10.5)
[2019-09-11] MEDS: OXYCODONE-ACETAMINOPHEN 5-325 MG TABLET PO PRN ×3 (08:38→22:32)
[2019-09-11] MEDS: PRENATAL VITAMIN W DHA CAPSULE PO SCH (09:12)
[2019-09-11] MEDS: DOCUSATE SODIUM 100 MG CAPSULE PO SCH ×2 (09:12→17:15)
--- NOTE | 2019-09-11 12:04 | PDOC PROGRESS REPORT ---
Subjective-OB Progress Note for:: 09/11/19 Subjective: OOB in room, doing well, pain under control, hsb at BS, took Adderall 2 days ago Physical Exam (OB) Vital Signs: Temp Pulse Resp BP Pulse Ox 97.4 F 60 18 120/78 100 09/11/19 11:18 09/11/19 11:18 09/11/19 11:18 09/11/19 11:18 09/11/19 11:18 Intake & Output 09/10/19 09/11/19 09/12/19 06:59 06:59 06:59 Intake Total 1050 1800 Output Total 2810 Balance 1050 -1010 Weight 83.6 kg - PIH/Pre-Eclampsia Headache: Absent Epigastric Pain: No Visual Changes: No - Dressing Removed: No - opsite Incision: Dressing - Lochia Lochia Amount: Scant < 10 ml Lochia Color: Serosa/Brown - Abdomen Description: Soft, Round Hernia Present: No Fundal Description: Firm, Midline Fundal Height: u/u - u/2 Objective-Diagnostic Laboratory: 09/11/19 05:54 09/11/19 05:54 WBC 14.4 H RBC 3.58 L Hgb 11.6 L Hct 31.9 L MCV 89 MCH 32.3 MCHC 36.2 H RDW 13.8 Plt Count 139 L 09/09/19 11:50 Vaginal/Anorectal Group B Streptococcus Culture - Final NO GROUP B STREPTOCOCCUS RECOVERED Assessment and Plan(PN) - Assessment and Plan (1) Failure to progress in labor Is this a current diagnosis for this admission?: Yes (2) Marijuana smoker Is this a current diagnosis for this admission?: Yes (3) Status post primary low transverse section Is this a current diagnosis for this admission?: Yes - Time Spent with Patient Time with patient: Less than 15 minutes Medications reviewed and adjusted accordingly: Yes - Disposition Anticipated Discharge: Home Within: within 24 hours
[2019-09-12] MEDS: CEFAZOLIN 1 GM/D5W RTU 1 GM/50 ML RTUPB IV SCH ×3 (01:43→13:52)
[2019-09-12] MEDS: IBUPROFEN 800 MG TABLET PO SCH ×2 (05:05→12:58)
[2019-09-12] MEDS: DOCUSATE SODIUM 100 MG CAPSULE PO SCH (09:51)
[2019-09-12] MEDS: PRENATAL VITAMIN W DHA CAPSULE PO SCH (09:51)
[2019-09-12] MEDS: OXYCODONE-ACETAMINOPHEN 5-325 MG TABLET PO PRN (09:52)
--- NOTE | 2019-09-12 11:26 | PDOC PROGRESS REPORT ---
Subjective-OB Progress Note for:: 09/12/19 Subjective: OOB in room, feeling good, passing gas and BM x 1, eating well, pain under control, scant bleeding Physical Exam (OB) Vital Signs: Temp Pulse Resp BP Pulse Ox 98.1 F 52 L 16 116/84 97 09/12/19 08:04 09/12/19 08:04 09/12/19 08:04 09/12/19 08:04 09/12/19 08:04 Intake & Output 09/11/19 09/12/19 09/13/19 06:59 06:59 07:59 Intake Total 1800 900 Output Total 2810 Balance -1010 900 - PIH/Pre-Eclampsia Headache: Absent Epigastric Pain: No Visual Changes: No - Dressing Removed: Yes - previously Incision: Well Approximated Closure Type: Surgical Glue - Lochia Lochia Amount: Scant < 10 ml Lochia Color: Rubra/Red - Abdomen Description: Tender Hernia Present: No Fundal Description: Firm, Midline Fundal Height: u/u - u/2 Objective-Diagnostic Laboratory: 09/11/19 05:54 09/09/19 11:50 Vaginal/Anorectal Group B Streptococcus Culture - Final NO GROUP B STREPTOCOCCUS RECOVERED Assessment and Plan(PN) - Assessment and Plan (1) Failure to progress in labor Is this a current diagnosis for this admission?: Yes (2) Marijuana smoker Is this a current diagnosis for this admission?: Yes (3) Status post primary low transverse section Is this a current diagnosis for this admission?: Yes - Time Spent with Patient Time with patient: Less than 15 minutes Medications reviewed and adjusted accordingly: Yes - Disposition Anticipated Discharge: Home Within: within 24 hours
--- NOTE | 2019-09-12 11:31 | PDOC DISCHARGE SUMMARY ---
Impression - Admit/DC Date/PCP Admission Date/Primary Care Provider: 09/09/19 11:49 LYN RICHTER MD Discharge Date: 09/12/19 - Discharge Diagnosis (1) Failure to progress in labor Is this a current diagnosis for this admission?: Yes (2) Marijuana smoker Is this a current diagnosis for this admission?: Yes (3) Status post primary low transverse section Is this a current diagnosis for this admission?: Yes - Additional Information Resuscitation Status: Full Code Discharge Diet: As Tolerated, Regular Discharge Activity: No Lifting Over 10 Pounds, Pelvic Rest, No tub bath Referrals: [facility] [Provider Group] Prescriptions: Oxycodone HCl/Acetaminophen [Percocet 5-325 mg Tablet] 1 tab PO Q4HP PRN #14 tablet PRN Reason: Ibuprofen [Motrin 800 mg Tablet] 800 mg PO Q6 #30 tablet Home Medications: Pnv No.95/Ferrous Fum/Folic AC [ Vitamin Tablet] 1 each PO DAILY 06/28/19 Ibuprofen [Motrin 800 mg Tablet] 800 mg PO Q6 #30 tablet 09/12/19 Oxycodone HCl/Acetaminophen [Percocet 5-325 mg Tablet] 1 tab PO Q4HP PRN #14 tablet 09/12/19 HPI Gestational Age: 36.3 Reason(s) for Admission: PROM Admission Note: Augmentation Procedures: NST, Ultrasound Intrapartum Procedure(s): : Low Cervical, Transverse Hospital Course Hospital Course: routine Results Laboratory Results: WBC 14.4 10^3/uL (4.0-10.5) H 09/11/19 05:54 RBC 3.58 10^6/uL (3.72-5.28) L 09/11/19 05:54 Hgb 11.6 g/dL (12.0-15.5) L 09/11/19 05:54 Hct 31.9 % (36.0-47.0) L 09/11/19 05:54 MCV 89 fl (80-97) 09/11/19 05:54 MCH 32.3 pg (27.0-33.4) 09/11/19 05:54 MCHC 36.2 g/dL (32.0-36.0) H 09/11/19 05:54 RDW 13.8 % (11.5-14.0) 09/11/19 05:54 Plt Count 139 10^3/uL (150-450) L 09/11/19 05:54 Lymph % (Auto) 21.8 % (13-45) 09/09/19 12:27 [place] % (Auto) 6.0 % (3-13) 09/09/19 12:27 Eos % (Auto) 1.1 % (0-6) 09/09/19 12:27 Baso % (Auto) 0.3 % (0-2) 09/09/19 12:27 Absolute Neuts (auto) 6.1 10^3/uL (1.7-8.2) 09/09/19 12: Absolute Lymphs (auto) 1.9 10^3/uL (0.5-4.7) 09/09/19 12: Absolute Monos (auto) 0.5 10^3/uL (0.1-1.4) 09/09/19 12: Absolute Eos (auto) 0.1 10^3/uL (0.0-0.6) 09/09/19 12:27 Absolute Basos (auto) 0.0 10^3/uL (0.0-0.2) 09/09/19 12: Seg Neutrophils % 70.8 % (42-78) 09/09/19 12:27 Urine Color KAREY 09/09/19 11:30 Urine Appearance CLOUDY 09/09/19 11:30 Urine pH 7.0 (5.0-9.0) 09/09/19 11:30 Ur Specific [place] 1.012 09/09/19 11:30 Urine Protein 100 mg/dL (NEGATIVE) H 09/09/19 11:30 Urine Glucose (UA) NEGATIVE mg/dL (NEGATIVE) 09/09/19 11:30 Urine Ketones NEGATIVE mg/dL (NEGATIVE) 09/09/19 11:30 Urine Blood MODERATE (NEGATIVE) H 09/09/19 11:30 Urine Nitrite NEGATIVE (NEGATIVE) 09/09/19 11:30 Urine Bilirubin NEGATIVE (NEGATIVE) 09/09/19 11:30 Urine Urobilinogen NEGATIVE mg/dL (<2.0) 09/09/19 11:30 Ur Leukocyte Esterase TRACE (NEGATIVE) H 09/09/19 11:30 Urine WBC (Auto) 30 /HPF 09/09/19 11:30 Urine RBC (Auto) 20 /HPF 09/09/19 11:30 U Hyaline Cast (Auto) 3 /LPF 09/09/19 11:30 Urine Bacteria (Auto) 1+ /HPF 09/09/19 11:30 Squamous Epi Cells Auto 38 /HPF 09/09/19 11:30 U Non-Squamous Epis Auto 1 /HPF 09/09/19 11:30 Urine Mucus (Auto) OCC /LPF 09/09/19 11:30 Urine Yeast (Budding) PRESENT /HPF 09/09/19 11:30 Urine Ascorbic Acid NEGATIVE (NEGATIVE) 09/09/19 11:30 Urine Opiates Screen NEGATIVE 09/09/19 11:30 Urine Methadone Screen NEGATIVE 09/09/19 11:30 Ur Barbiturates Screen NEGATIVE 09/09/19 11:30 Ur Phencyclidine Scrn NEGATIVE 09/09/19 11:30 Ur Amphetamines Screen UNCONFIRMED POSITIVE 09/09/19 11:30 U Benzodiazepines Scrn NEGATIVE 09/09/19 11:30 Urine Cocaine Screen NEGATIVE 09/09/19 11:30 U Marijuana (THC) Screen UNCONFIRMED POSITIVE 09/09/19 11:30 RPR NONREACTIVE (NONREACTIVE) 09/09/19 12:27 Chlamydia DNA (PCR) NOT DETECTED (NOT DETECT) 09/09/19 11:50 N.gonorrhoeae DNA (PCR) NOT DETECTED (NOT DETECT) 09/09/19 11:50 Blood Type A POSITIVE 09/09/19 12:27 Antibody Screen NEGATIVE 09/09/19 12:27 Plan Health Concerns: routine Post op Plan of Treatment: routine Goals: no complications Time Spent: Less than 30 Minutes
[2019-09-12] MEDS ORDERED: IBUPROFEN 800 MG TABLET PO SCH (12:00)
[2019-09-12 14:06] VITALS: BP 109/65
[2019-09-14 07:04] LABS: AMPHETAMINE CONFIRMATION UR Positive (.); CANNABINOID CONFIRMATION UR Positive (.)
== END 2019-09-12 13:53 | disposition home or self-care (01) | DRG 786 ==
LOC: LC 11:21 → LR 11:49 → 2S 09-10 13:20
PROVIDERS: ADMIT Obstetrics & Gynecology; ATTEND Obstetrics & Gynecology Gynecology
PROC: 10D00Z1 Extraction of Products of Conception, Low, Open Approach (ICD-10-PCS; principal; 2019-09-10)
DX: O42.913 Preterm premature rupture of membranes, unspecified as to length of time between rupture and onset of labor, third trimester (principal); O60.14X0 Preterm labor third trimester with preterm delivery third trimester, not applicable or unspecified; O99.324 Drug use complicating childbirth; O99.314 Alcohol use complicating childbirth; O99.214 Obesity complicating childbirth; O62.1 Secondary uterine inertia; E66.9 Obesity, unspecified; O77.0 Labor and delivery complicated by meconium in amniotic fluid; F12.90 Cannabis use, unspecified, uncomplicated; F15.90 Other stimulant use, unspecified, uncomplicated; Z3A.36 36 weeks gestation of pregnancy; Z37.0 Single live birth; Z90.49 Acquired absence of other specified parts of digestive tract; Z88.2 Allergy status to sulfonamides; Z88.0 Allergy status to penicillin
CPT/HCPCS: 1961; 36415; 80307; 80349; 81001; 85025; 85027; 86592; 86850; 86900; 86901; 87081; 87491; 87591; 88307; 90715; 94799; G0480; J0131; J0690; J0702; J1885; J2060; J2250; J2270; J2370; J2405; J2590; J3010; J3490